=== PATIENT | female | born 1970 | race Caucasian/White ===

== ENCOUNTER 2019-03-22 10:36 | Emergency (ER) | payer OTHER, SELFPAY ==
[2019-03-22] VITALS (7 sets, daily range): BP systolic 142–197; BP diastolic 69–84; PULSE 95–109; RESP 14–24; TEMP 37.1; O2SAT 94–99; BMI 38.2
[2019-03-22] MEDS: FAMOTIDINE 20 MG/50 ML PIGGYBACK 200 MG IV (11:32)
[2019-03-22] MEDS: ONDANSETRON 4 MG/2 ML INJ IV (11:32)
[2019-03-22] MEDS: methylPREDNISolone 125 MG/2 ML VIAL IV (11:32)
[2019-03-22] MEDS: SODIUM CHLORIDE 0.9% 1,000 ML 1000 ML IV (11:34)
--- NOTE | 2019-03-22 11:55 | ED.ALLEREA ---
HPI - Allergic Reaction General Chief complaint: Allergic Reaction Stated complaint: Allergic reaction/ epipen Time Seen by Provider: 03/22/19 10:42 Source: patient and EMS Mode of arrival: EMS Limitations: no limitations History of Present Illness HPI narrative: 48-year-old female nonsmoker with history of diabetes and significant allergic reactions presents by EMS for allergic reaction. It is unknown what her trigger was today but she developed some swelling in her throat as well as widespread erythematous rash. She took her own EpiPen which had been and activated EMS treated her as well. By the time she arrived here she had largely calm down and had no ongoing symptoms. She denies new medicines, foods or exposure to pets or other known allergens. She has seen an elementary art teacher in the past and had no significant results MD complaint: allergic reaction, hives and facial swelling Onset (ago): minute(s) Exposure: unknown Symptoms: rash Severity: moderate Treatment prior to arrival: benadryl, epinephrine and bronchodilator Previous Allergic Reaction History: prior ED visit(s) Related Data Home Medications Medication Instructions Recorded Confirmed levonorgestrel [Mirena] #0 08/24/12 CALCIUM CARBONATE (TUMS ) 2 - 3 tabs PO PRN #0 08/25/12 ibuprofen 200 mg PO PRN #0 08/25/12 glimepiride 4 mg PO DAILY 03/22/19 03/22/19 lisinopril 20 mg PO DAILY 03/22/19 03/22/19 metformin 1,000 mg PO BID 03/22/19 03/22/19 omeprazole 20 mg PO DAILY 03/22/19 03/22/19 trazodone 100 mg PO BEDTIME 03/22/19 03/22/19 Previous Rx's Medication Instructions Recorded alprazolam [Xanax] 1 - 2 tabs PO HS PRN #60 01/17/13 epinephrine [EpiPen 2-Kyle] 0.3 mg INJ X1 #1 ea 11/01/17 epinephrine [EpiPen 2-Kyle] 0.3 mg IM Q15M PRN 1 Days #2 each 03/22/19 prednisone 20 mg PO DAILY #5 tab 03/22/19 Allergies Allergy/AdvReac Type Severity Reaction Status Date / Time Penicillins Allergy Verified 03/22/19 10:44 Review of Systems Constitutional Denies chills, Denies fever(s), Denies lethargy and Denies weakness Eyes Denies change in vision, Denies eye discharge, Denies irritation and Denies loss of vision ENT Ears, Nose, Mouth, and Throat: Denies change in voice, Reports hoarseness, Denies neck pain and Denies sore throat Cardiovascular Denies chest pain, Denies irregular heart rhythm, Denies lightheadedness, Denies palpitations, Reports dyspnea, Denies dyspnea on exertion and Denies orthopnea Respiratory Denies cough, Reports dyspnea, Denies dyspnea on exertion and Reports wheezing Gastrointestinal Gastrointestinal: Denies abdominal pain, Denies change in bowel habits, Denies diarrhea, Denies nausea and Denies vomiting Genitourinary Denies hematuria, Denies flank pain, Denies urinary incontinence and Denies urinary urgency Musculoskeletal Denies neck pain Integumentary/Breasts Denies pruritus, Reports erythema, Reports rash and Denies wounds Neurologic Denies confusion, Denies loss of vision and Denies weakness Psychiatric Denies anxiety, Denies confusion, Denies depression, Denies homicidal ideation and Denies suicidal ideation Endocrine Denies palpitations Hematologic/Lymphatic Denies easy bruising Allergic/Immunologic Reports wheezing Exam Narrative Exam Narrative: GENERAL: This is a well-nourished, well-developed patient, in mild distress. HEAD: Atraumatic. Normocephalic. No temporal or scalp tenderness. EYES: Pupils equal round and reactive. Extraocular motions intact. No scleral icterus. No injection or drainage. ENT: Nose without bleeding, purulent drainage or septal hematoma. Throat without erythema, tonsillar hypertrophy or exudate. Uvula midline. Airway patent. NECK: Trachea midline. No JVD or lymphadenopathy. Supple, nontender, no meningeal signs. CARDIOVASCULAR: Regular rate and rhythm without murmurs, gallops, or rubs. RESPIRATORY: Clear to auscultation. Breath sounds equal bilaterally. No wheezes, rales, or rhonchi. GASTROINTESTINAL: Abdomen soft, non-tender, nondistended. No hepato-splenomegaly, or palpable masses. No guarding. EXTREMITIES: No clubbing, cyanosis, or edema. No joint tenderness, effusion, or edema noted. BACK: Nontender without deformity or crepitance. No flank tenderness. NEURO: AOx3. SKIN: No rash or erythema. Initial Vital Signs Initial Vital Signs: Vital Signs Temperature 98.8 F 03/22/19 10:44 Pulse Rate 109 H 03/22/19 10:44 Respiratory Rate 20 03/22/19 10:44 Blood Pressure 197/84 H 03/22/19 10:44 Pulse Oximetry 99 03/22/19 10:44 Course Orders Ordered: ED Orders 03/22/19 10:48 EKG-12 Lead Routine Discontinued Medications Sodium Chloride (Normal Saline 0.9%) 1,000 mls @ 1,000 mls/hr IV BOLUS ONE Stop: 03/22/19 11:59 Last Infusion: 03/22/19 12:49 Dose: 0 mls/hr Admin: 03/22/19 11:34 Dose: 1,000 mls/hr Famotidine (Pepcid) 20 mg in 50 mls @ 200 mls/hr IV NOW ONE Stop: 03/22/19 11:14 Last Infusion: 03/22/19 12:49 Dose: 0 mls/hr Admin: 03/22/19 11:32 Dose: 200 mls/hr Methylprednisolone (Solu-Medrol 125 Mg Vial) 125 mg IV NOW ONE Stop: 03/22/19 11:01 Last Admin: 03/22/19 11:32 Dose: 125 mg Ondansetron HCl (Zofran) 4 mg IV Q4HR PRN PRN Reason: Nausea And Vomiting Last Admin: 03/22/19 11:32 Dose: 4 mg Vital Signs - 8 hr 03/22/19 10:44 03/22/19 11:00 03/22/19 11:30 Temperature 98.8 F Pulse Rate 109 H 101 H 101 H Respiratory Rate 20 14 24 Blood Pressure 197/84 H Blood Pressure [Left Arm] 190/71 H 156/76 H Pulse Oximetry 99 99 94 03/22/19 12:00 03/22/19 12:30 03/22/19 13:30 Temperature Pulse Rate 95 H 95 H 95 H Respiratory Rate 19 18 16 Blood Pressure Blood Pressure [Left Arm] 151/81 H 151/74 H 142/69 H Pulse Oximetry 98 96 97 03/22/19 14:00 Temperature Pulse Rate 95 H Respiratory Rate 16 Blood Pressure Blood Pressure [Left Arm] 148/77 H Pulse Oximetry 97 MDM - Allergic Reaction MDM Narrative Medical decision making narrative: Patient with significant allergic reactions to an unknown trigger. Affective treatment prior to arrival and no worsening of symptoms during the visit Discharge Plan Departure Patient Disposition: Home Clinical Impression: Allergic reaction Qualifiers: Encounter type: initial encounter Qualified Code(s): T78.40XA - Allergy, unspecified, initial encounter Discharge Date/Time: 03/22/19 14:16 Interventions: ED Discharge Assessment Last Done: 03/22/19 14:15 Instructions: DI for General Allergic Reactions Activity Restrictions/Additional Instructions: *You have been diagnosed with [ allergic reaction ] *What to do: *Take medications as directedL: Over the counter antihistamines such as zyrtec or allergra as well as Pepcid *Follow up with your primary care provider in 2-3 days, call for an appointment. Let them know you were seen in the Emergency Department and that we ask that you be seen in follow up *Return to ER if you should have any new, worsening or concerning symptoms Prescriptions: New prednisone 20 mg tablet 20 mg PO DAILY Qty: 5 RF: 0 epinephrine [EpiPen 2-Kyle] 0.3 mg/0.3 mL auto-injector 0.3 mg IM Q15M PRN (Reason: anaphylaxis) 1 Days Qty: 2 RF: 0 No Action levonorgestrel [Mirena] 1 EACH intrauterine device Qty: 0 RF: 0 CALCIUM CARBONATE (TUMS ) 2 - 3 tabs PO PRN Qty: 0 RF: 0 ibuprofen 200 MG tablet 200 mg PO PRN Qty: 0 RF: 0 alprazolam [Xanax] 0.5 MG tablet 1 - 2 tabs PO HS PRN Qty: 60 RF: 1 epinephrine [EpiPen 2-Kyle] 0.3 MG/0.3 ML auto-injector 0.3 mg INJ X1 Qty: 1 RF: 1 metformin 500 mg tablet 1,000 mg PO BID RF: 0 glimepiride 2 mg tablet 4 mg PO DAILY RF: 0 trazodone 100 mg tablet 100 mg PO BEDTIME RF: 0 lisinopril 20 MG tablet 20 mg PO DAILY RF: 0 omeprazole 20 MG capsule,delayed release(DR/EC) 20 mg PO DAILY RF: 0 Referrals: Eric Carranza DO [Primary Care Provider] -
--- NOTE | 2019-03-22 12:51 | PC.NURSE ---
IV placed by Sidra BRIGHT at 1130
== END 2019-03-22 14:16 | disposition home or self-care (01) ==
PROVIDERS: Emergency Provider Emergency Medicine; PCP Family Medicine
DX: T78.40XA Allergy, unspecified, initial encounter (principal); L50.0 Allergic urticaria; R22.0 Localized swelling, mass and lump, head
CPT/HCPCS: 93005; 96365; 96375; 99284; J2405; J2930

== ENCOUNTER 2019-08-31 10:07 | Emergency (ER) | payer OTHER, SELFPAY ==
[2019-08-31] VITALS (7 sets, daily range): BP systolic 158–181; BP diastolic 77–97; PULSE 88–114; RESP 16–24; TEMP 36.9–37.1; O2SAT 94–97; BMI 39.9
--- NOTE | 2019-08-31 11:12 | ED_ITS ---
HPI - Allergic Reaction General Chief complaint: Allergic Reaction Stated complaint: hives/cp/vomiting/diarrhea since last night Time Seen by Provider: 08/31/19 10:44 Source: patient Mode of arrival: Ambulatory Limitations: no limitations History of Present Illness HPI narrative: Patient comes emergency department complaining of nausea vomiting for the last couple of days, as well as itching and swelling of her hands. Patient also states she has hives all over her body today. Patient denies any abdominal pain. She states she has a pressure-like pain in her chest that has been bothering her today. No shortness of breath. Patient states she has had diarrhea, but no blood in stools. No dysuria. Patient denies any cardiac history. She is a type 2 diabetic. She states she has a history of allergies, which usually causes swelling and redness and itching of her hands, though she has seen an pen and pencil repairer and had two allergy panels done, nobody has figured out what she is allergic to. Related Data Home Medications Medication Instructions Recorded Confirmed ibuprofen 200 mg PO PRN #0 08/25/12 08/31/19 glimepiride 4 mg PO DAILY 03/22/19 08/31/19 metformin 1,000 mg PO BID 03/22/19 08/31/19 omeprazole 20 mg PO DAILY 03/22/19 08/31/19 epinephrine [EpiPen 2-Kyle] 0.3 mg INJ X1 PRN 08/31/19 08/31/19 hydrochlorothiazide 25 mg PO DAILY 08/31/19 08/31/19 Previous Rx's Medication Instructions Recorded ondansetron 4 mg PO Q6H PRN #14 tab 08/31/19 prednisone 60 mg PO DAILY #9 tab 08/31/19 Allergies Allergy/AdvReac Type Severity Reaction Status Date / Time Penicillins Allergy Verified 03/22/19 10:44 Review of Systems Constitutional Constitutional: Denies chills, Denies fatigue, Denies fever(s), Denies frequent falls, Denies lethargy and Denies weakness Eyes Eyes: Denies change in vision, Denies eye discharge, Denies irritation and Denies loss of vision ENT Ears, Nose, Mouth, and Throat: Denies change in voice, Denies dizziness, Denies neck pain, Denies sore throat and Denies throat swelling Cardiovascular Cardiovascular: Reports chest pain, Denies irregular heart rhythm, Denies lightheadedness, Denies palpitations, Denies dyspnea, Denies dyspnea on exertion and Denies orthopnea Respiratory Respiratory: Denies cough, Denies dyspnea, Denies dyspnea on exertion and Denies wheezing Gastrointestinal Gastrointestinal: Denies abdominal pain, Denies change in bowel habits, Denies diarrhea, Denies nausea and Denies vomiting Genitourinary Genitourinary: Denies hematuria, Denies flank pain, Denies urinary incontinence and Denies urinary urgency Musculoskeletal Musculoskeletal: Denies back pain, Denies muscle weakness, Denies neck pain, Denies numbness and Denies tingling Integumentary/Breasts Skin/Breast: Denies pruritus, Reports erythema (palms), Denies rash and Denies wounds Neurologic Neurologic: Denies behavioral changes, Denies confusion, Denies dizziness, Denies frequent falls, Denies loss of vision, Denies numbness, Denies tingling and Denies weakness Psychiatric Psychiatric: Denies anxiety, Denies behavioral changes, Denies confusion, Denies depression, Denies homicidal ideation and Denies suicidal ideation Endocrine Endocrine: Denies fatigue, Denies flushing and Denies palpitations Hematologic/Lymphatic Hematologic/Lymphatic: Denies easy bruising Allergic/Immunologic Allergic/Immunologic: Denies urticaria, Denies throat swelling and Denies whee zing Patient History Social History Smoking Status: Never smoker alcohol intake frequency: 0-2 drinks per day Alcohol type: wine Exam Initial Vital Signs Initial Vital Signs: Vital Signs Temperature 98.4 F 08/31/19 10:26 Pulse Rate 112 H 08/31/19 10:26 Respiratory Rate 24 08/31/19 10:26 Blood Pressure 181/97 H 08/31/19 10:26 Pulse Oximetry 97 08/31/19 10:26 Const General: cooperative and well developed Nutritional Appearance: well nourished Orientation: alert, awake, oriented x3 and not confused [facility] Head: normocephalic and atraumatic Ears: external ears normal Nose: external nose normal and No nasal discharge Face and sinus: face symmetric and No dry mucous membranes Mouth: oral mucosae normal and moist mucous membranes Teeth and gingiva: dentition normal Eyes General: appearance normal, both eyes and all related structures Eyelids: eyelids normal Conjunctivae: conjunctivae normal Sclera: sclerae normal Pupils: PERRL EOM: EOM intact bilaterally Neck Neck: normal visual inspection, trachea midline, No lymphadenopathy, No midline deformity and No JVD Lymphatic: No lymphedema Chest Chest: normal inspection of the chest Resp Effort & Inspection: normal respiratory effort, able to speak in complete sentences, no respiratory distress and no use of accessory muscles Auscultation: clear to auscultation bilaterally, no rales, no rhonchi and no wheezes Cardio Rate: regular rate Rhythm: regular rhythm Heart Sounds: no click, no gallops, no murmurs and no rubs Pulses: normal peripheral pulses GI Inspection: non-distended Palpation: soft, no hepatosplenomegaly, No guarding, No pulsatile mass and No tender Back/Spine/Pelvis Back: No CVA tenderness Cervical Spine: cervical ROM normal and No pain with cervical ROM Thoracic/Lumbar Spine: thoracic and lumbar spine normal to inspection Skin General: No jaundice and No petechiae Other: Patient has an urticarial rash over her truncal area, and has mild edema with mild erythema of her palms and fingers on the flexor surface. Neuro General: alert, oriented x3, gait normal and no focal motor deficits Speech: speech normal Extrem General: full ROM, no clubbing, cyanosis or edema, no pedal edema and no calf tenderness Psych Appearance: well kempt Mental Status: mental status grossly normal Attitude: cooperative Thought Content: normal and suicidality Judgment: judgment good Course Course Course Narrative: Patient was treated symptomatically in the emergency department with IV Decadron, IV fluids, and Zofran. She was worked up with labs, which showed mildly elevated LFTs. Given this and the nausea the patient had been having, I did order an abdominal ultrasound, which showed chronic changes in the liver, but was otherwise unremarkable. patient was found to be feeling somewhat better, and I discussed her results with her. The patient has already seen two allergists for the allergic reactions, and extensive testing has not uncovered a source. I have discussed with the patient that she may seek another opinion from another pen and pencil repairer, perhaps at [facility]. At this time, the patient is stable for discharge home. We have discussed home management of symptoms, as well as the usual indications for return. Orders Ordered: Discontinued Medications Sodium Chloride (Normal Saline 0.9%) 1,000 mls @ 1,000 mls/hr IV BOLUS ONE Stop: 08/31/19 12:00 Last Infusion: 08/31/19 12:43 Dose: 0 mls/hr Documented by: Admin: 08/31/19 11:14 Dose: 1,000 mls/hr Documented by: LACHELLE Dexamethasone 20 mg/ Sodium (Chloride) 52 mls @ 208 mls/hr IV NOW ONE Stop: 08/31/19 11:02 Last Infusion: 08/31/19 11:45 Dose: 0 mls/hr Documented by: Admin: 08/31/19 11:29 Dose: 208 mls/hr Documented by: LACHELLE Ondansetron HCl (Zofran) 4 mg IV NOW ONE Stop: 08/31/19 11:02 Last Admin: 08/31/19 11:14 Dose: 4 mg Documented by: LACHELLE Vital Signs Vital signs: Vital Signs - 8 hr 08/31/19 10:26 08/31/19 11:08 Temperature 98.4 F 98.7 F Pulse Rate 112 H 114 H Respiratory Rate 24 16 Blood Pressure 181/97 H Blood Pressure [Right Arm] 167/96 H Pulse Oximetry 97 97 MDM - Allergic Reaction Medical Records Attestation: I reviewed the patient's medical records. Lab Data Attestation: I reviewed the patient's lab results. Result diagrams: 08/31/19 10:45 08/31/19 12:56 Labs: Lab Results 08/31/19 08/31/19 Range/Units 10:45 12:56 WBC 10.5 (4.5-11.0) X10^3/uL RBC 5.45 H (4.0-5.2) X10^6/uL Hgb 15.9 (12.0-16.0) g/dL Hct 47.1 H (36-46) % MCV 86.3 (80-100) fL MCH 29.2 (26-34) PG MCHC 33.8 (30-36) % RDW 13.7 (11.6-14.8) % Plt Count 270 (150-400) X10^3/uL Neut % (Auto) 84.2 H (50-75) % Lymph % (Auto) 10.2 L (25-40) % Louisa % (Auto) 4.8 (3-14) % Eos % (Auto) 0.7 L (2-4) % Baso % (Auto) 0.1 (0-2) % Neut # (Auto) 8800 H (7578-4143) /uL Lymph # (Auto) 1100 (4345-8702) /uL Louisa # (Auto) 500 (0-900) /uL Eos # (Auto) 100 (0-450) /uL Baso # (Auto) 0 (0-100) /uL Sodium 136 L (137-145) mmol/L Potassium 3.6 (3.4-5.1) mmol/L Chloride 100 (98-107) mmol/L Carbon Dioxide 27 (22-32) mmol/L BUN 12 (7-17) mg/dL Creatinine 0.50 L (0.52-1.04) mg/dL Estimated GFR > 60.0 (>60) mL/min BUN/Creatinine Ratio 24.0 H (6-22) Glucose 259 H (70-100) mg/dL Calcium 8.9 (8.4-10.2) mg/dL Total Bilirubin 0.7 (0.2-1.3) mg/dL AST 45 H (14-36) IU/L ALT 58 H (9-52) IU/L Alkaline Phosphatase 54 (38-126) U/L Total Protein 6.6 (6.3-8.2) g/dL Albumin 3.8 (3.5-5.0) g/dL Globulin 2.8 (1.7-4.1) g/dL Albumin/Globulin Ratio 1.4 (1.0-2.8) Imaging Data US - abdomen: Radiologist's impression: PROCEDURE: US ABDOMEN LIMITED INDICATIONS: VOMITING, ELEVATED LIVER FUNCTION TESTS. Reported patient history of fatty liver disease, status post cholecystectomy. TECHNIQUE: Real-time focused scanning was performed of the abdomen, with image documentation. COMPARISON: None. FINDINGS: Suboptimal exam due to imaging artifact. Imaged portions of the pancreatic head appear unremarkable. The pancreatic body and tail are obscured by overlying bowel gas. There is diffusely increased hepatic echogenicity. The right hepatic lobe measures 21.9 cm in sagittal diameter. The main portal vein is not well seen on this exam. The common bile duct is not well-seen on this exam. A structure thought to represent the common bile duct measures approximately 5 mm, but is not definitive secondary imaging artifact. The gallbladder is not seen on this exam. Right kidney measures 12.4 cm in long axis. IMPRESSION: Suboptimal exam due to imaging artifact. Within this context: 1. Enlarged liver demonstrating diffusely increased hepatic echogenicity. Differential considerations for these findings includes (but is not limited to) hepatic steatosis, hepatic fibrosis/cirrhosis, and/or hepatitis. Clinical correlation recommended. 2. Gallbladder is not seen on this exam, consistent with provided history of prior cholecystectomy. The common bile duct is not definitively seen on this exam. Co nsider liver MRI/MRCP if there is continued clinical concern. Dictated by: Rocky Fatima M.D. on 08/31/2019 at 14:17 Approved by: Rocky Fatima M.D. on 08/31/2019 at 14:26 Discharge Plan Departure Patient Disposition: Home Clinical Impression: Gastroenteritis Allergic reaction Qualifiers: Encounter type: initial encounter Qualified Code(s): T78.40XA - Allergy, unspecified, initial encounter Discharge Date/Time: 08/31/19 14:35 Instructions: DI for Viral Gastroenteritis -- Adult, DI for Hives Activity Restrictions/Additional Instructions: Your labs look great, with the exception of your liver labs, which are slightly elevated. For this reason, an ultrasound was done of your right upper abdomen. You have mild fatty infiltration the liver which can cause your labs to be abnormal. Otherwise, your ultrasound looks great. There is no evidence of a serious condition causing your symptoms today. Please continue to work with your pen and pencil repairer to pinpoint the reason for your outbreaks of urticaria, swelling and itching. Prescriptions: New prednisone 20 mg tablet 60 mg PO DAILY Qty: 9 RF: 0 ondansetron 4 mg tablet,disintegrating 4 mg PO Q6H PRN (Reason: nausea and vomiting) Qty: 14 RF: 0 No Action ibuprofen 200 MG tablet 200 mg PO PRN Qty: 0 RF: 0 metformin 500 mg tablet 1,000 mg PO BID RF: 0 glimepiride 2 mg tablet 4 mg PO DAILY RF: 0 omeprazole 20 MG capsule,delayed release(DR/EC) 20 mg PO DAILY RF: 0 hydrochlorothiazide 25 mg tablet 25 mg PO DAILY RF: 0 epinephrine [EpiPen 2-Kyle] 0.3 MG/0.3 ML auto-injector 0.3 mg INJ X1 PRN (Reason: Allergic Reaction) RF: 0 Referrals: Eric Carranza DO [Primary Care Provider] -
[2019-08-31] MEDS: SODIUM CHLORIDE 0.9% 1,000 ML 1000 ML IV (11:14)
[2019-08-31] MEDS: ONDANSETRON 4 MG/2 ML INJ IV (11:14)
[2019-08-31] MEDS: dexAMETHasone 20 MG in SODIUM CHLORIDE 0.9% 50 ML 208 ML IV (11:29)
[2019-08-31 12:52] LABS: Add Manual Diff / Slide Review NO; Basophils Absolute Auto 0 /uL (0-100); Basophils Percent Auto 0.1 % (0-2); Eosinophils Absolute Auto 100 /uL (0-450); Eosinophils Percent Auto 0.7 % (2-4); Hematocrit 47.1 % (36-46); Hemoglobin 15.9 g/dL (12.0-16.0); Lymphocytes Absolute Auto 1100 /uL (1100-4500); Lymphocytes Percent Auto 10.2 % (25-40); Mean Corpuscular HGB Conc 33.8 % (30-36); Mean Corpuscular Hemoglobin 29.2 PG (26-34); Mean Corpuscular Volume 86.3 fL (80-100); Monocytes Absolute Auto 500 /uL (0-900); Monocytes Percent Auto 4.8 % (3-14); Neutrophils Absolute Auto 8800 /uL (1500-7000); Neutrophils Percent Auto 84.2 % (50-75); Platelet Count 270 X10^3/uL (150-400); Red Blood Cell Count 5.45 X10^6/uL (4.0-5.2); Red Cell Distribution Width 13.7 % (11.6-14.8); White Blood Cell Count 10.5 X10^3/uL (4.5-11.0)
[2019-08-31 13:16] LABS: Alanine Aminotransferase 58 IU/L (9-52); Albumin 3.8 g/dL (3.5-5.0); Albumin Globulin Ratio 1.4 (1.0-2.8); Alkaline Phosphatase 54 U/L (38-126); Aspartate Aminotransferase 45 IU/L (14-36); Bilirubin Total 0.7 mg/dL (0.2-1.3); Blood Urea Nitrogen 12 mg/dL (7-17); Calcium 8.9 mg/dL (8.4-10.2); Carbon Dioxide 27 mmol/L (22-32); Chloride 100 mmol/L (98-107); Estimated Glomerular Filt Rate > 60.0 mL/min (>60); Globulin 2.8 g/dL (1.7-4.1); Glucose 259 mg/dL (70-100); HEMOLYSIS < 15 (0-50); Potassium 3.6 mmol/L (3.4-5.1); Sodium 136 mmol/L (137-145); Total Protein 6.6 g/dL (6.3-8.2)
--- NOTE | 2019-08-31 13:27 | DI.US.S_ITS ---
PROCEDURE: US ABDOMEN LIMITED INDICATIONS: VOMITING, ELEVATED LIVER FUNCTION TESTS. Reported patient history of fatty liver disease, status post cholecystectomy. TECHNIQUE: Real-time focused scanning was performed of the abdomen, with image documentation. COMPARISON: None. FINDINGS: Suboptimal exam due to imaging artifact. Imaged portions of the pancreatic head appear unremarkable. The pancreatic body and tail are obscured by overlying bowel gas. There is diffusely increased hepatic echogenicity. The right hepatic lobe measures 21.9 cm in sagittal diameter. The main portal vein is not well seen on this exam. The common bile duct is not well-seen on this exam. A structure thought to represent the common bile duct measures approximately 5 mm, but is not definitive secondary imaging artifact. The gallbladder is not seen on this exam. Right kidney measures 12.4 cm in long axis. IMPRESSION: Suboptimal exam due to imaging artifact. Within this context: 1. Enlarged liver demonstrating diffusely increased hepatic echogenicity. Differential considerations for these findings includes (but is not limited to) hepatic steatosis, hepatic fibrosis/cirrhosis, and/or hepatitis. Clinical correlation recommended. 2. Gallbladder is not seen on this exam, consistent with provided history of prior cholecystectomy. The common bile duct is not definitively seen on this exam. Consider liver MRI/MRCP if there is continued clinical concern. Dictated by: Rocky Fatima M.D. on 08/31/2019 at 14:17 Approved by: Rocky Fatima M.D. on 08/31/2019 at 14:26
[2019-08-31] MEDS: ONDANSETRON 4 MG/2 ML INJ (14:14)
== END 2019-08-31 14:35 | disposition home or self-care (01) ==
PROVIDERS: Emergency Provider Emergency Medicine; PCP Family Medicine
DX: K52.9 Noninfective gastroenteritis and colitis, unspecified (principal); T78.40XA Allergy, unspecified, initial encounter
CPT/HCPCS: 36415; 76705; 80053; 85025; 96361; 96365; 96375; 99283; 99284; J1100; J2405

== ENCOUNTER 2019-12-23 07:09 | Emergency (ER) | payer OTHER, SELFPAY ==
[2019-12-23 07:21] VITALS: BP 150/90; PULSE 90; RESP 13; TEMP 36.2; O2SAT 98
[2019-12-23 07:31] LABS: Appearance Urine UA CLOUDY; Bacteria Urine None Seen; Bilirubin Urine UA NEGATIVE (NEGATIVE); Color Urine UA BROWN; Glucose Urine UA 2+ g/dL (Negative); Ketones Urine UA TRACE (NEGATIVE); Leukocyte Esterase Urine UA 1+ (NEGATIVE); Nitrite Urine UA NEGATIVE (Negative); Occult Blood Urine UA 3+ (Negative); Protein Urine UA 2+ (Negative); Specific Gravity Urine UA 1.015 (1.000-1.035); Urobilinogen Urine UA 0.2 E.U./dL (0.2)
[2019-12-23 07:44] LABS: Culture Indicated Urine Specimen Cultured; RBC Urine >100/HPF (0-5/HPF); Renal Epithelial Cells Urine 0-1/HPF (0-1/HPF); Squamous Epithelial Cell Urine 1-5 /HPF (0-5/HPF); Transitional Epi Cells Urine 1-5/HPF (0-5/HPF); WBC Urine 5-10/HPF (0-5/HPF)
[2019-12-23] MEDS: PHENAZOPYRIDINE 100 MG TABLET 200 MG PO (07:46)
[2019-12-23] MEDS: TRIMETH/SULFA 160/800 (DS) TABLET 1 TAB PO (07:46)
--- NOTE | 2019-12-23 07:51 | ED_ITS ---
HPI - Female Genitourinary General Chief complaint: Urogenital-Female Stated complaint: raging UTI/urinating blood Source: patient Mode of arrival: Ambulatory History of Present Illness HPI Narrative: 49-year-old woman with a history of type 2 diabetes currently recovering from influenza a and a vaginal yeast infection began having acute dysuria, urgency and hematuria in the last 12 hours. She is having no fevers, nausea, vomiting, diarrhea, flank pain, some mild suprapubic abdominal pain only without rebound or guarding, no pulmonary symptoms and no chest pain. She states that it has been years since she has had a urinary tract infection Related Data Home Medications Medication Instructions Recorded Confirmed ibuprofen 200 mg PO PRN #0 08/25/12 08/31/19 glimepiride 4 mg PO DAILY 03/22/19 08/31/19 metformin 1,000 mg PO BID 03/22/19 08/31/19 omeprazole 20 mg PO DAILY 03/22/19 08/31/19 epinephrine [EpiPen 2-Kyle] 0.3 mg INJ X1 PRN 08/31/19 08/31/19 hydrochlorothiazide 25 mg PO DAILY 08/31/19 08/31/19 Previous Rx's Medication Instructions Recorded ondansetron 4 mg PO Q6H PRN #14 tab 08/31/19 prednisone 60 mg PO DAILY #9 tab 08/31/19 phenazopyridine [Pyridium] 200 mg PO TID #6 tab 12/23/19 sulfamethoxazole-trimethoprim 1 tab PO BID #10 tab 12/23/19 [Bactrim DS] Allergies Allergy/AdvReac Type Severity Reaction Status Date / Time Penicillins Allergy Verified 03/22/19 10:44 Review of Systems Review of Systems Narrative: All systems reviewed and are unremarkable except as noted in HPI and below Patient History Medical History Diabetes (Acute) education level: college Smoking Status: Never smoker alcohol intake frequency: 0-2 drinks per day Alcohol type: wine Substance Use Type: does not use Exam Narrative Exam Narrative: General: Alert appropriate in no acute distress Respiratory: Able to speak in full sentences, no obvious respiratory distress Cardiac: Regular rate and rhythm no murmurs Abdomen: Minor suprapubic tenderness without rebound or guarding. No flank tenderness Skin: No obvious rashes, warm and dry Neurologic: Grossly intact no obvious asymmetries or abnormalities Psych, appropriate insight and affect, cooperative Initial Vital Signs Initial Vital Signs: Vital Signs Temperature 97.1 F L 12/23/19 07:21 Pulse Rate 90 12/23/19 07:21 Respiratory Rate 13 12/23/19 07:21 Blood Pressure 150/90 H 12/23/19 07:21 Pulse Oximetry 98 12/23/19 07:21 Course Orders Ordered: ED Orders 12/23/19 07:26 UA dip and micro [Urinalysis and Microscopic] Stat Urine Culture Stat Discontinued Medications Phenazopyridine HCl (Pyridium) 200 mg PO NOW ONE Stop: 12/23/19 07:39 Last Admin: 12/23/19 07:46 Dose: 200 mg Documented by: CARLOS Trimethoprim/Sulfamethoxazole (Bactrim Ds) 1 tab PO NOW ONE Stop: 12/23/19 07:39 Last Admin: 12/23/19 07:46 Dose: 1 tab Documented by: CARLOS Vital Signs Vital signs: Vital Signs - 8 hr 12/23/19 07:21 Temperature 97.1 F L Pulse Rate 90 Respiratory Rate 13 Blood Pressure 150/90 H Pulse Oximetry 98 MDM - Female Genitourinary Lab Data Labs: Lab Results 12/23/19 Range/Units 07:26 Urine Color Brown Urine Appearance Cloudy Urine pH 5.0 (4.5-8.0) Ur Specific [place] 1.015 (1.000-1.035) Urine Protein 2+ H (Negative) Urine Glucose (UA) 2+ H (Negative) g/dL Urine Ketones Trace H (NEGATIVE) Urine Occult Blood 3+ H (Negative) Urine Nitrate Negative (Negative) Urine Bilirubin Negative (NEGATIVE) Urine Urobilinogen 0.2 (0.2) E.U./dL Ur Leukocyte Esterase 1+ H (NEGATIVE) Urine RBC >100/hpf H (0-5/HPF) Urine WBC 5-10/hpf H (0-5/HPF) Ur Squamous Epith Cells 1-5 /hpf (0-5/HPF) Ur Transition Epith Cell 1-5/hpf (0-5/HPF) Ur Renal Epithelial Cell 0-1/hpf (0-1/HPF) Urine Bacteria None seen (None) Ur Culture Indicated? Specimen cultured MDM Narrative Medical decision making narrative: Classic presentation for an acute UTI with moderate hematuria. Will culture her urine. This point does not warrant further workup. Clearly reviewed signs and symptoms of worsening disease or developing systemic symptoms. All questions are answered. She is safe for home discharge Discharge Plan Departure Patient Disposition: Home Clinical Impression: Urinary tract infection Instructions: DI for Urinary Tract Infection (UTI) Activity Restrictions/Additional Instructions: Thank you for coming in today. Based on your urinalysis you clearly have a bladder infection and does not appear to have become a kidney infection at this time. I am going to start you on 5 days of Septra ds, an antibiotic to treat the bladder infection. If the culture comes back in suggests that this is the inappropriate antibiotic, we will call you back in changes. With the current yeast infection that you currently have, I'm going to suggest you to keep the 3 additional Diflucan doses that you currently have and take them starting on the final day of the Septra. I think this will provide better coverage for you and will deal with any antibiotic related yeast concerns as well. It is okay to continue using nystatin for symptomatic itching I am glad you are feeling better after dealing with influenza. We clearly discussed the signs and symptoms of a kidney infection. If you feel like the bladder infection is not improving or getting worse, please return and we will do a more thorough workup that includes blood work I hope you feel better soon. Prescriptions: New sulfamethoxazole-trimethoprim [Bactrim DS] 800-160 mg tablet 1 tab PO BID Qty: 10 RF: 0 phenazopyridine [Pyridium] 200 mg tablet 200 mg PO TID Qty: 6 RF: 0 No Action ibuprofen 200 MG tablet 200 mg PO PRN Qty: 0 RF: 0 metformin 500 mg tablet 1,000 mg PO BID RF: 0 glimepiride 2 mg tablet 4 mg PO DAILY RF: 0 omeprazole 20 MG capsule,delayed release(DR/EC) 20 mg PO DAILY RF: 0 hydrochlorothiazide 25 mg tablet 25 mg PO DAILY RF: 0 epinephrine [EpiPen 2-Kyle] 0.3 MG/0.3 ML auto-injector 0.3 mg INJ X1 PRN (Reason: Allergic Reaction) RF: 0 prednisone 20 mg tablet 60 mg PO DAILY Qty: 9 RF: 0 ondansetron 4 mg tablet,disintegrating 4 mg PO Q6H PRN (Reason: nausea and vomiting) Qty: 14 RF: 0 Referrals: Eric Carranza DO [Primary Care Provider] -
== END 2019-12-23 08:13 | disposition home or self-care (01) ==
PROVIDERS: Emergency Provider Emergency Medicine; PCP Family Medicine
DX: N39.0 Urinary tract infection, site not specified (principal); R31.9 Hematuria, unspecified; E11.9 Type 2 diabetes mellitus without complications
CPT/HCPCS: 81001; 87077; 87086; 87147; 99283

== ENCOUNTER 2022-03-02 19:30 | Observation (INO) | payer OTHER, SELFPAY ==
[2022-03-02] VITALS (28 sets, daily range): BP systolic 152–243; BP diastolic 69–109; PULSE 71–92; RESP 8–23; TEMP 36.6; O2SAT 94–99
--- NOTE | 2022-03-02 19:35 | DI.RAD.S_ITS ---
PROCEDURE: XR CHEST 1V INDICATIONS: chest pain TECHNIQUE: One view of the chest was acquired. COMPARISON: [facility], , CHEST 1 VIEW, 05/09/2017, 4:01. FINDINGS: Surgical changes and devices: None. Lungs and pleura: Lungs are clear. No pleural effusions or pneumothorax. Mediastinum: Mediastinal contours appear normal. Heart size is normal. Bones and chest wall: No suspicious bony lesions. Overlying soft tissues appear unremarkable. IMPRESSION: No acute cardiopulmonary abnormality. Dictated by: Marvin Blount M.D. on 03/02/2022 at 21:22 Approved by: Marvin Blount M.D. on 03/02/2022 at 21:22
[2022-03-02 20:18] LABS: Add Manual Diff / Slide Review NO; Basophils Absolute Auto 100 /uL (0-100); Eosinophils Absolute Auto 200 /uL (0-450); Eosinophils Percent Auto 3.1 % (2-4); Hematocrit 37.4 % (36-46); Hemoglobin 12.9 g/dL (12.0-16.0); Lymphocytes Absolute Auto 1400 /uL (1100-4500); Lymphocytes Percent Auto 25.6 % (25-40); Mean Corpuscular HGB Conc 34.4 % (30-36); Mean Corpuscular Hemoglobin 29.7 PG (26-34); Mean Corpuscular Volume 86.3 fL (80-100); Monocytes Absolute Auto 500 /uL (0-900); Monocytes Percent Auto 8.3 % (3-14); Neutrophils Absolute Auto 3500 /uL (1500-7000); Platelet Count 186 X10^3/uL (150-400); Red Blood Cell Count 4.34 X10^6/uL (4.0-5.2); Red Cell Distribution Width 13.9 % (11.6-14.8); White Blood Cell Count 5.6 X10^3/uL (4.5-11.0)
[2022-03-02] MEDS: ONDANSETRON 4 MG/2 ML INJ (20:30)
[2022-03-02 20:49] LABS: Alanine Aminotransferase 37 IU/L (<35); Albumin 4.7 g/dL (3.5-5.0); Albumin Globulin Ratio 1.6 (1.0-2.8); Alkaline Phosphatase 47 U/L (38-126); Aspartate Aminotransferase 39 IU/L (14-36); BUN Creatinine Ratio 20.5 (6-22); Bilirubin Total 0.6 mg/dL (0.2-1.3); Blood Urea Nitrogen 15 mg/dL (7-17); Calcium 8.9 mg/dL (8.4-10.2); Carbon Dioxide 26 mmol/L (22-32); Chloride 100 mmol/L (98-107); Creatine Kinase 137 U/L (30-135); Estimated Glomerular Filt Rate > 60 mL/min (>60); Globulin 2.9 g/dL (1.7-4.1); Glucose 130 mg/dL (70-100); HEMOLYSIS 23 (0-50); Lipase 151 U/L (23-300); Magnesium 1.9 mg/dL (1.6-2.3); Potassium 3.8 mmol/L (3.4-5.1); Sodium 138 mmol/L (137-145); Total Protein 7.6 g/dL (6.3-8.2)
[2022-03-02] MEDS: LABETALOL 20 MG/4 ML SYRINGE IV (20:55)
[2022-03-02 21:00] LABS: Troponin I < 0.012 ng/mL (0.01-0.034)
[2022-03-02 21:04] LABS: CKMB % Relative Index 0.9 % (1.5-5.0); Creatine Kinase MB 1.23 ng/mL (<2.37)
--- NOTE | 2022-03-02 21:04 | ED.CHESTPAIN ---
HPI - Chest Pain General Chief Complaint: Chest Pain Stated Complaint: CHEST PAIN NAUSEA HIGH BLOOD PRESSURE Time Seen by Provider: 03/02/22 20:22 Source: patient Mode of arrival: Ambulatory History of Present Illness HPI narrative: 51-year-old female nonsmoker with history of diabetes, GERD and hypertension presents with of family friend and a chief complaint of headache and squeezing chest pain gradually worsening over the course of the day. She denies any recent trauma or injury. She denies any fever or chills nor neck pain. She denies obvious provocation, palliation or radiation of the squeezing in her chest. She does feel mildly short of breath but denies any cough or sputum production. She denies blurred vision, trouble speech or extremity numbness, weakness or tingling. She denies change in her medications or diet. She went to bed in her normal state of health and over the course of the day has noted her blood pressure to be rising well into the 200s which is highly atypical for her. She has been taking her medications as directed. She denies exertional dyspnea or any recent exercise intolerance. She denies any unexplained weight change Related Data Home Medications Medication Instructions Recorded Confirmed epinephrine 0.3 mg/0.3 mL 0.3 mg INJ X1 PRN 08/31/19 03/02/22 injection, auto-injector (EpiPen 2-Kyle) hydrochlorothiazide 25 mg tablet 25 mg PO DAILY 08/31/19 03/02/22 metformin 500 mg tablet 1,000 mg PO BID 03/02/22 03/02/22 omeprazole 20 mg capsule,delayed 20 mg PO DAILY 03/02/22 03/02/22 release Allergies Allergy/AdvReac Type Severity Reaction Status Date / Time Penicillins Allergy Verified 03/02/22 20:49 Review of Systems Review of Systems Narrative: GENERAL: see HPI HEENT: Denies sinus pain, ear pain, sore throat, difficulty swallowing, dizziness. RESPIRATORY: Denies dyspnea, cough, wheezing, hemoptysis, sputum. CARDIOVASCULAR: see HPI GASTROINTESTINAL: see HPI : Denies dysuria, frequency, incontinence, hematuria, urinary retention. MUSCULOSKELETAL: denies weakness, joint pain, or bony pain SKIN: Denies rash, skin lesions, or other NEUROLOGIC: Denies weakness, headache, numbness, change in speech, confusion, seizures, incoordination. PSYCHIATRIC: No concerning psychosocial issues. 12 point review of systems is negative except for those stated above Patient History Medical History (Updated 03/03/22 @ 03:02 by Enoch Calhoun DO) Diabetes Social History education level: college Smoking Status: Never smoker Smoking Status: Never smoker alcohol intake frequency: 0-2 drinks per day Alcohol type: wine Substance Use Type: does not use Exam Narrative Exam Narrative: GENERAL: [51] year old patient appears stated age. Well-developed patient, in mild distress. HEAD: Atraumatic. Normocephalic. EYES: Pupils equal round and reactive. Extraocular motions intact. No scleral icterus. No injection or drainage. ENT: Nose without bleeding, purulent drainage. Throat without erythema, tonsillar hypertrophy or exudate. Airway patent. NECK: Trachea midline. Non tender CARDIOVASCULAR: Regular rate and rhythm without murmurs, gallops, or rubs. RESPIRATORY: Clear to auscultation. Breath sounds equal bilaterally. No wheezes, rales, or rhonchi. GASTROINTESTINAL: Abdomen soft, non-tender, nondistended. EXTREMITIES: No edema or joint tenderness. BACK: Nontender without deformity or crepitance. No flank tenderness. NEURO: AOx3. SKIN: No rash or erythema of visible areas Initial Vital Signs Initial Vital Signs: Vital Signs Temperature 97.9 F 03/02/22 19:33 Pulse Rate 84 03/02/22 19:33 Respiratory Rate 20 03/02/22 19:33 Blood Pressure 208/99 H 03/02/22 19:33 Pulse Oximetry 99 03/02/22 19:33 Course Orders Ordered: ED Orders 03/02/22 19:35 XR chest 1V Stat EKG-12 Lead Stat 03/02/22 20:05 Complete Blood Count AUTO DIFF Stat Comprehensive Metabolic Panel Stat Lipase Stat Magnesium Stat Troponin & CK Cardiac Panel Stat 03/02/22 22:52 COVID19 -Nasal RAPID/Pre-Proc Stat Acetaminophen (Acetaminophen 325 Mg Tablet) 650 mg PO Q6HR PRN PRN Reason: Fever/Mild Pain (1-3) Dextrose (Dextrose 50 % In Water 25 Gm/50 Ml Syringe) 25 gm IV PRN PRN PRN Reason: Hypoglycemia Enoxaparin Sodium (Enoxaparin 40 Mg/0.4 Ml Syringe) 40 mg SUBCUT DAILY MADELYN Nicardipine HCl 25 mg/ Sodium (Chloride) 250 mls @ 50 mls/hr IV TITRATE MADELYN; Protocol Insulin Human Lispro (Insulin Lispro 100 Unit/Ml 3ml Vial) 0 unit SUBCUT ACHS MADELYN; Protocol Naloxone HCl (Naloxone 0.4 Mg/Ml Vial) 0.1 mg IV Q2MIN PRN PRN Reason: Opiate Reversal Tramadol HCl (Tramadol 50 Mg Tablet) 50 mg PO Q4H PRN PRN Reason: Pain, Moderate (4-6) Discontinued Medications Enoxaparin Sodium (Enoxaparin 40 Mg/0.4 Ml Syringe) 40 mg SUBCUT DAILY MADELYN Nicardipine HCl 25 mg/ Sodium (Chloride) 250 mls @ 50 mls/hr IV TITRATE MADELYN; Protocol Last Titration: 03/03/22 01:46 Dose: 0 mg/hr, 0 mls/hr Documented by: Titration: 03/03/22 01:31 Dose: 1.5 mg/hr, 15 mls/hr Documented by: Titration: 03/03/22 00:59 Dose: 2 mg/hr, 20 mls/hr Documented by: Titration: 03/03/22 00:22 Dose: 3 mg/hr, 30 mls/hr Documented by: Titration: 03/03/22 00:02 Dose: 1.5 mg/hr, 15 mls/hr Documented by: Titration: 03/02/22 23:41 Dose: 5 mg/hr, 50 mls/hr Documented by: Titration: 03/02/22 23:15 Dose: 7.5 mg/hr, 75 mls/hr Documented by: Admin: 03/02/22 22:44 Dose: 5 mg/hr, 50 mls/hr Documented by: MARILEE Labetalol HCl (Labetalol 20 Mg/4 Ml Syringe) 20 mg IV NOW ONE Stop: 03/02/22 20:52 Last Admin: 03/02/22 20:55 Dose: 20 mg Documented by: JAMES Reevaluation(s) Reevaluation #1: Patient has improvement in blood pressure down to the 150s after labetalol, her headache resolved nearly completely and chest pressure improved significantly. Within 30-40 minutes her blood pressure and resume back up and at this point we decided admission was needed with an IV drip. Vital Signs Vital signs: Vital Signs - 8 hr 03/02/22 19:33 03/02/22 20:32 03/02/22 20:40 Temperature 97.9 F Pulse Rate 84 87 81 Respiratory Rate 20 10 L Blood Pressure 208/99 H 225/102 H Pulse Oximetry 99 99 98 03/02/22 20:45 03/02/22 20:55 03/02/22 21:00 Temperature Pulse Rate 80 85 77 Respiratory Rate 22 14 8 L Blood Pressure 234/109 H Pulse Oximetry 97 97 95 03/02/22 21:01 03/02/22 21:15 03/02/22 21:30 Temperature Pulse Rate 77 71 74 Respiratory Rate 11 L 17 16 Blood Pressure 202/90 H 185/90 H 186/91 H Pulse Oximetry 94 97 97 03/02/22 21:45 03/02/22 22:00 03/02/22 22:15 Temperature Pulse Rate 74 75 79 Respiratory Rate 12 12 21 Blood Pressure 198/96 H 183/90 H 209/96 H Pulse Oximetry 95 95 97 03/02/22 22:33 03/02/22 22:34 03/02/22 22:45 Temperature Pulse Rate 80 78 76 Respiratory Rate 12 18 Blood Pressure 196/87 H 176/74 H Pulse Oximetry 99 97 96 MDM - Chest Pain Lab Data Result diagrams: 03/02/22 20:05 03/02/22 20:05 Labs: Lab Results 03/02/22 03/02/22 03/02/22 Range/Units 20:05 20:05 20:05 WBC 5.6 (4.5-11.0) X10^3/uL RBC 4.34 (4.0-5.2) X10^6/uL Hgb 12.9 (12.0-16.0) g/dL Hct 37.4 (36-46) % MCV 86.3 (80-100) fL MCH 29.7 (26-34) PG MCHC 34.4 (30-36) % RDW 13.9 (11.6-14.8) % Plt Count 186 (150-400) X10^3/uL Neut % (Auto) 62.0 (50-75) % Lymph % (Auto) 25.6 (25-40) % [place] % (Auto) 8.3 (3-14) % Eos % (Auto) 3.1 (2-4) % Baso % (Auto) 1.0 (0-2) % Neut # (Auto) 3500 (2721-4442) /uL Lymph # (Auto) 1400 (8981-3288) /uL [place] # (Auto) 500 (0-900) /uL Eos # (Auto) 200 (0-450) /uL Baso # (Auto) 100 (0-100) /uL Sodium 138 (137-145) mmol/L Potassium 3.8 (3.4-5.1) mmol/L Chloride 100 (98-107) mmol/L Carbon Dioxide 26 (22-32) mmol/L BUN 15 (7-17) mg/dL Creatinine 0.73 (0.52-1.04) mg/dL Estimated GFR > 60 (>60) mL/min BUN/Creatinine Ratio 20.5 (6-22) Glucose 130 H (70-100) mg/dL Hemoglobin A1c 6.4 H (4.0-6.0) % Calcium 8.9 (8.4-10.2) mg/dL Magnesium 1.9 (1.6-2.3) mg/dL Total Bilirubin 0.6 (0.2-1.3) mg/dL AST 39 H (14-36) IU/L ALT 37 H (<35) IU/L Alkaline Phosphatase 47 (38-126) U/L Total Creatine Kinase 137 H (30-135) U/L CK-MB (CK-2) 1.23 (<2.37) ng/mL CK-MB (CK-2) Rel Index 0.9 L (1.5-5.0) % Troponin I < 0.012 (0.01-0.034) ng/mL Total Protein 7.6 (6.3-8.2) g/dL Albumin 4.7 (3.5-5.0) g/dL Globulin 2.9 (1.7-4.1) g/dL Albumin/Globulin Ratio 1.6 (1.0-2.8) Lipase 151 (23-300) U/L SARS-CoV-2 (PCR) (Negative) 03/02/22 Range/Units 22:52 WBC (4.5-11.0) X10^3/uL RBC (4.0-5.2) X10^6/uL Hgb (12.0-16.0) g/dL Hct (36-46) % MCV (80-100) fL MCH (26-34) PG MCHC (30-36) % RDW (11.6-14.8) % Plt Count (150-400) X10^3/uL Neut % (Auto) (50-75) % Lymph % (Auto) (25-40) % [place] % (Auto) (3-14) % Eos % (Auto) (2-4) % Baso % (Auto) (0-2) % Neut # (Auto) (0785-5992) /uL Lymph # (Auto) (5436-9108) /uL [place] # (Auto) (0-900) /uL Eos # (Auto) (0-450) /uL Baso # (Auto) (0-100) /uL Sodium (137-145) mmol/L Potassium (3.4-5.1) mmol/L Chloride (98-107) mmol/L Carbon Dioxide (22-32) mmol/L BUN (7-17) mg/dL Creatinine (0.52-1.04) mg/dL Estimated GFR (>60) mL/min BUN/Creatinine Ratio (6-22) Glucose (70-100) mg/dL Hemoglobin A1c (4.0-6.0) % Calcium (8.4-10.2) mg/dL Magnesium (1.6-2.3) mg/dL Total Bilirubin (0.2-1.3) mg/dL AST (14-36) IU/L ALT (<35) IU/L Alkaline Phosphatase (38-126) U/L Total Creatine Kinase (30-135) U/L CK-MB (CK-2) (<2.37) ng/mL CK-MB (CK-2) Rel Index (1.5-5.0) % Troponin I (0.01-0.034) ng/mL Total Protein (6.3-8.2) g/dL Albumin (3.5-5.0) g/dL Globulin (1.7-4.1) g/dL Albumin/Globulin Ratio (1.0-2.8) Lipase (23-300) U/L SARS-CoV-2 (PCR) Negative (Negative) Discharge Plan Departure Patient Disposition: Admitted As Inpatient Clinical Impression: Hypertensive urgency Admit Date/Time: 03/02/22 22:54 Admit Provider: Lashae Mcghee
[2022-03-02] MEDS: NICARDIPINE 25 MG in SODIUM CHLORIDE 0.9% 240 ML 50 ML IV (22:44)
[2022-03-02 23:13] LABS: COVID19 -Nasal RAPID Negative (Negative)
[2022-03-03] VITALS (71 sets, daily range): BP systolic 123–189; BP diastolic 58–98; PULSE 66–88; RESP 0–31; TEMP 35.9–37; O2SAT 92–97; BMI 33.3
[2022-03-03 00:40] LABS: Hemoglobin A1C% w Est Avg Glu 6.4 % (4.0-6.0)
--- NOTE | 2022-03-03 01:42 | PM.ICURNDS ---
- :: This patient was seen via real time interactive two-way audiovisual telecommunication. Note: Received call from primary team regarding patient who is boarding in ER but has orders to move to ICU for management of presumed Hypertensive Emergency on a Nicardipine drip. I am unable to evaluate patient at this time given that she is in the ER, but I performed a chart review and discussed case with POLICE ACADEMY PROGRAM COORDINATOR as requested. Recommend formal ICU consult when patient arrives in unit. Per my review, patient in ER for elevated BP noted at home. Workup thus far w/o evidence of IVNNY, Encephalopathy, NSTEMI or Neurologic deficits. Patient most likely with uncontrolled hypertension. Recommend UA to evaluate for hematuria. Patient is currently on a Nicardipine drip. On arrival in ER, SBP elevated into the 230s. If patient to be continued on Nicardipine drip, would not drop BP by more than 25% in the first 24 hours (thus target SBP is greater than 175) to avoid over correction. Would favor transition off of Nicardipine drip and addition of PO BP medications as needed.
[2022-03-03 02:04] LABS: Bacteria Urine None Seen; RBC Urine None Seen (0-5/HPF); Squamous Epithelial Cell Urine 0-1 /HPF (0-5/HPF)
[2022-03-03 02:06] LABS: Culture Indicated Urine Cult Not Indicated; WBC Urine 0-1/HPF (0-5/HPF)
[2022-03-03 02:28] LABS: Troponin I < 0.012 ng/mL (0.01-0.034)
[2022-03-03 04:43] LABS: TSH w/ Reflex to FT4 2.67 uIU/mL (0.47-4.68)
--- NOTE | 2022-03-03 04:50 | PM.HP.1 ---
History of Present Illness History of Present Illness Date Patient Seen: 03/03/22 Time Patient Seen: 01:00 Chief complaint: CHEST PAIN NAUSEA HIGH BLOOD PRESSURE Narrative: Nj Brown is a 51-year-old obese female who presented to the emergency department with chest pain, nausea and generalized fatigue. She took her blood pressure at home and it was 200/110. She felt like she was having gas, chest pressure, and headache. She denies fevers sweats or chills, vomiting, abdominal pain, changes in bladder or bowel control, dysuria, or numbing and him going of her upper lower extremities. She does states she is diabetic and her blood glucoses have been under good control however she believes they may be a little worsened since she just returned from a cruise to the [facility]. She states her last A1c was in the low 5s. Her blood pressure is normally controlled with hydrochlorothiazide. The patient was administered IV labetalol with no effect on her blood pressure and the emergency department put her on a nicardipine drip with a request for admission to the ICU for further management of her hypertensive urgency. Her blood pressures did drop into the 120s, this was discussed with the tele director of community education who wanted to have her blood pressure no greater than a 25% drop of her highest systolic pressure, which would place this at a systolic pressure of 175 for the 1st 24 hours. Chest x-ray done in the ED did not identify any acute cardiopulmonary abnormalities. Currently she is afebrile, blood pressure 153/76, heart rate 75, respiratory rate 23, oxygen saturation of 97% on room air she weighs 90.7 kg. CBC is unremarkable, her glucose was 130 with an A1c of 6.4, AST 39, ALT 37, total creatinine kinase was 137, troponins x3 were all negative, TSH is 2.67, UA was free of hematuria or bacterial component, COVID-19 PCR is negative. Patient History Medical History (Updated 03/03/22 @ 04:54 by ADAN Coulter) Diabetes Essential hypertension Surgical History (Updated 03/03/22 @ 04:54 by ADAN Coulter) History of cholecystectomy History of lateral meniscus repair of left knee Family & Social History Family History (Updated 03/03/22 @ 04:59 by ADAN Coulter) Father Coronary artery disease Hypertension Mother Hypertension Tobacco & Substance use: Smoking Status Never smoker alcohol intake frequency 0-2 drinks per day, mostly on the weekends Substance Use Type does not use Meds Home Medications and Allergies Home Medications Medication Instructions Recorded Confirmed Type epinephrine 0.3 mg/0.3 mL 0.3 mg INJ X1 PRN 08/31/19 03/02/22 History injection, auto-injector (EpiPen 2-Kyle) hydrochlorothiazide 25 mg tablet 25 mg PO DAILY 08/31/19 03/02/22 History metformin 500 mg tablet 1,000 mg PO BID 03/02/22 03/02/22 History omeprazole 20 mg capsule,delayed 20 mg PO DAILY 03/02/22 03/02/22 History release Allergies Allergy/AdvReac Type Severity Reaction Status Date / Time Penicillins Allergy Verified 03/02/22 20:49 Review of Systems Review of Systems ROS: Yes All systems reviewed with the patient and are negative except as otherwise documented Exam Vital Signs (past 8 hours): - 03/02/22 20:55 03/02/22 21:00 03/02/22 21:01 Pulse Rate 85 77 77 Respiratory Rate 14 8 L 11 L Blood Pressure 234/109 H 202/90 H Pulse Oximetry 97 95 94 03/02/22 21:15 03/02/22 21:30 03/02/22 21:45 Pulse Rate 71 74 74 Respiratory Rate 17 16 12 Blood Pressure 185/90 H 186/91 H 198/96 H Pulse Oximetry 97 97 95 03/02/22 22:00 03/02/22 22:15 03/02/22 22:33 Pulse Rate 75 79 80 Respiratory Rate 12 21 Blood Pressure 183/90 H 209/96 H Pulse Oximetry 95 97 99 03/02/22 22:34 03/02/22 22:45 03/02/22 22:55 Pulse Rate 78 76 80 Respiratory Rate 12 18 15 Blood Pressure 196/87 H 176/74 H 175/81 H Pulse Oximetry 97 96 95 03/02/22 23:00 03/02/22 23:05 03/02/22 23:10 Pulse Rate 79 82 82 Respiratory Rate 12 14 16 Blood Pressure 171/81 H 165/75 H 185/81 H Pulse Oximetry 97 95 94 03/02/22 23:15 03/02/22 23:20 03/02/22 23:25 Pulse Rate 85 88 91 H Respiratory Rate 15 18 17 Blood Pressure 176/81 H 171/79 H 157/70 H Pulse Oximetry 96 96 94 03/02/22 23:30 03/02/22 23:35 03/02/22 23:43 Pulse Rate 92 H 92 H 90 Respiratory Rate 18 16 23 Blood Pressure 164/74 H 161/73 H 163/82 H Pulse Oximetry 95 96 96 03/02/22 23:45 03/02/22 23:50 03/02/22 23:55 Pulse Rate 92 H 87 90 Respiratory Rate 14 16 18 Blood Pressure 156/75 H 157/76 H 152/69 H Pulse Oximetry 96 96 96 03/03/22 00:00 03/03/22 00:10 03/03/22 00:19 Pulse Rate 88 85 Respiratory Rate 15 14 Blood Pressure 148/72 H 167/78 H Pulse Oximetry 96 95 95 03/03/22 00:20 03/03/22 00:26 03/03/22 00:30 Pulse Rate 85 83 84 Respiratory Rate 19 17 Blood Pressure 175/83 H 157/72 H 159/73 H Pulse Oximetry 97 95 93 03/03/22 00:35 03/03/22 00:40 03/03/22 00:45 Pulse Rate 82 83 83 Respiratory Rate 20 19 19 Blood Pressure 169/80 H 161/74 H 160/76 H Pulse Oximetry 97 95 95 03/03/22 00:50 03/03/22 00:55 03/03/22 01:00 Pulse Rate 84 84 85 Respiratory Rate 14 17 15 Blood Pressure 162/75 H 154/72 H 172/81 H Pulse Oximetry 95 92 96 03/03/22 01:05 03/03/22 01:11 03/03/22 01:15 Pulse Rate 83 84 81 Respiratory Rate 14 19 16 Blood Pressure 168/82 H 169/83 H Pulse Oximetry 96 97 95 03/03/22 01:20 03/03/22 01:30 03/03/22 01:40 Pulse Rate 82 79 79 Respiratory Rate 16 18 22 Blood Pressure 155/74 H 148/71 H 137/74 Pulse Oximetry 96 93 92 03/03/22 01:45 03/03/22 01:46 03/03/22 02:00 Pulse Rate 77 76 75 Respiratory Rate 15 13 13 Blood Pressure 146/77 H 143/80 H Pulse Oximetry 97 97 94 03/03/22 02:15 03/03/22 02:30 03/03/22 02:45 Pulse Rate 75 78 73 Respiratory Rate 15 18 Blood Pressure 143/79 H 142/80 H 123/69 Pulse Oximetry 94 94 94 03/03/22 03:00 03/03/22 03:15 03/03/22 03:30 Pulse Rate 73 76 70 Respiratory Rate 15 22 16 Blood Pressure 126/61 152/73 H 146/73 H Pulse Oximetry 95 96 94 Oxygen Delivery Method Room Air Narrative Exam Narrative: Gen: Alert, oriented, obese 51 y.o. female, NAD HEENT: normocephalic, atraumatic, conjunctiva clear, sclera non-icteric, oral mucosa pink and moist Neck: supple, full ROM, no JVD, trachea is midline Resp: Lungs CTA, non-labored breathing CV: RRR, no murmur or rubs Abd: soft, non-tender, normoactive BTs Skin: no lesions or rashes, dry and intact Neuro: Alert and oriented X 4 w/no focal deficits. Speech clear and coherent. Extremities: moves all 4 extremities, is ambulatory, negative Dodie?s sign Psyche: normal mood and affect. Objective Labs Result Diagrams: 03/02/22 20:05 03/02/22 20:05 Labs: Laboratory Results - last 24 hr 03/02/22 03/02/22 03/02/22 20:05 20:05 20:05 WBC 5.6 RBC 4.34 Hgb 12.9 Hct 37.4 MCV 86.3 MCH 29.7 MCHC 34.4 RDW 13.9 Plt Count 186 Neut % (Auto) 62.0 Lymph % (Auto) 25.6 [place] % (Auto) 8.3 Eos % (Auto) 3.1 Baso % (Auto) 1.0 Neut # (Auto) 3500 Lymph # (Auto) 1400 [place] # (Auto) 500 Eos # (Auto) 200 Baso # (Auto) 100 Sodium 138 Potassium 3.8 Chloride 100 Carbon Dioxide 26 BUN 15 Creatinine 0.73 Estimated GFR > 60 BUN/Creatinine Ratio 20.5 Glucose 130 H Hemoglobin A1c 6.4 H Calcium 8.9 Magnesium 1.9 Total Bilirubin 0.6 AST 39 H ALT 37 H Alkaline Phosphatase 47 Total Creatine Kinase 137 H CK-MB (CK-2) 1.23 CK-MB (CK-2) Rel Index 0.9 L Troponin I < 0.012 Total Protein 7.6 Albumin 4.7 Globulin 2.9 Albumin/Globulin Ratio 1.6 Lipase 151 TSH Urine RBC Urine WBC Ur Squamous Epith Cells Urine Bacteria Ur Culture Indicated? SARS-CoV-2 (PCR) 03/02/22 03/02/22 03/03/22 20:05 22:52 01:51 WBC RBC Hgb Hct MCV MCH MCHC RDW Plt Count Neut % (Auto) Lymph % (Auto) [place] % (Auto) Eos % (Auto) Baso % (Auto) Neut # (Auto) Lymph # (Auto) [place] # (Auto) Eos # (Auto) Baso # (Auto) Sodium Potassium Chloride Carbon Dioxide BUN Creatinine Estimated GFR BUN/Creatinine Ratio Glucose Hemoglobin A1c Calcium Magnesium Total Bilirubin AST ALT Alkaline Phosphatase Total Creatine Kinase CK-MB (CK-2) CK-MB (CK-2) Rel Index Troponin I Total Protein Albumin Globulin Albumin/Globulin Ratio Lipase TSH 2.67 Urine RBC None seen Urine WBC 0-1/hpf Ur Squamous Epith Cells 0-1 /hpf Urine Bacteria None seen Ur Culture Indicated? Cult not indicated SARS-CoV-2 (PCR) Negative 03/03/22 01:53 WBC RBC Hgb Hct MCV MCH MCHC RDW Plt Count Neut % (Auto) Lymph % (Auto) [place] % (Auto) Eos % (Auto) Baso % (Auto) Neut # (Auto) Lymph # (Auto) [place] # (Auto) Eos # (Auto) Baso # (Auto) Sodium Potassium Chloride Carbon Dioxide BUN Creatinine Estimated GFR BUN/Creatinine Ratio Glucose Hemoglobin A1c Calcium Magnesium Total Bilirubin AST ALT Alkaline Phosphatase Total Creatine Kinase CK-MB (CK-2) CK-MB (CK-2) Rel Index Troponin I < 0.012 Total Protein Albumin Globulin Albumin/Globulin Ratio Lipase TSH Urine RBC Urine WBC Ur Squamous Epith Cells Urine Bacteria Ur Culture Indicated? SARS-CoV-2 (PCR) Assessment & Plan Assessment & Plan narrative: Nj Brown is admitted to the ICU now boarding in the ED for further management of a hypertensive urgency. 1. Hypertensive urgency, acute, present on admission Patient was on a nicardipine drip until approximately 3:30 a.m. and her systolic blood pressures are now in the 150s. She will need to be started on likely a beta-fidel for blood pressure control Troponins are all negative. 2. Diabetes type 2 with the A1c of 6.4, suboptimally controlled Elevation likely due to her recent trip She is written for carb controlled diet and low-dose insulin correctional scale 3. Risk stratification Lipid panel ordered for this morning and pending. VTE Prophylaxis: Wells risk score 0 [X]Enoxaparin 40 mg subQ once daily Bilateral SCDs Patient is admitted to the inpatient ICU service due to the severity of disease, risks of further disease progression and this stay is expected to exceed 2 midnights. FEN: IV fluids: saline lock, diet: carb controlled heart healthy, labs: CBC, C/BMP, liver enzymes, Mag, PT/INR Consultants Intercept ICU care and involvement in the patient?s care is appreciated. Please contact when the patient reaches the floor Dispo: probable discharge to home Code status: Full Code as discussed with the patient. [X] I have utilized all available immediate resources to obtain, update, or review of the patient's current medications COVID-19 COVID-19 status: Negative Result date/Date tested (Pos, Neg/Pending): 03/03/22 Time Spent With Patient Critical Care time: I spent a total of [] minutes of critical care time on this patient's care today; this time is exclusive of procedural time.
[2022-03-03 07:30] LABS: Cholesterol 140 mg/dL (140-199); HDL Cholesterol 40 mg/dL (40-60); LDL Cholesterol Calculated 69 mg/dL (<100); Triglycerides 155 mg/dL (35-150)
--- NOTE | 2022-03-03 08:35 | PC.NURSE ---
spoke with dr. herman to clarify orders, pt is currently off niCardipine gtt, she will be starting lisinopril, to not give insulin, pt will take her dose of metformin. pt is to have breakfast this am.
[2022-03-03] MEDS: PANTOPRAZOLE DR 20 MG TABLET PO (08:40)
[2022-03-03] MEDS: ENOXAPARIN 40 MG/0.4 ML SYRINGE SUBCUT (08:41)
[2022-03-03] MEDS: METOPROLOL ER 50 MG TABLET PO ×2 (09:28→20:01)
--- NOTE | 2022-03-03 09:30 | PC.NURSE ---
pt took own metformin, 500mg tab x2.
--- NOTE | 2022-03-03 10:04 | PC.NURSE ---
pt ate breakfast .
[2022-03-03 10:55] LABS: Troponin I < 0.012 ng/mL (0.01-0.034)
--- NOTE | 2022-03-03 13:39 | PC.NURSE ---
Pt to room 221 via bed. Oriented to room, call light, tv controls, and bed controls. Pt has no history of falls. Pt states she is feeling a bit nauseated and requests Zofran-ordered. Pt states she has no chest pain but does have a bit of chest pressure. Dr. Benton notified that Pt is in her room.
[2022-03-03] MEDS: AMLODIPINE 5 MG TABLET PO (13:44)
[2022-03-03] MEDS: ONDANSETRON 4 MG/2 ML INJ IV (13:44)
[2022-03-03 14:36] LABS: Troponin I < 0.012 ng/mL (0.01-0.034)
[2022-03-03] MEDS: ACETAMINOPHEN 325 MG TABLET 650 MG PO ×2 (15:22→22:17)
--- NOTE | 2022-03-03 15:48 | DI.ECHO.S_ITS ---
[facility]---------+ [facility] +---------+ : : [address] : : : : [id number] : : : : Phone: [phone] Echocardiogram Report + + :Name: AB LUGO Study Date: 03/04/2022 Height: 65 in : :[facility] ReadingLocation: Weight: 200 lb : : Gender: Female BSA: 2.0 m2 : :: 1970 Age: 51 yrs BP: 148/76 mmHg: :Reason For Study: Hypertension : : Performed By: Jennifer Luna : :Referring: HOMERO LINDQUIST : + + Interpretation Summary - The ejection fraction is estimated to be 60-65%. - Indeterminant dyastolic dysfunction. - The right ventricle is normal in size and function. - Pulmonary artery pressures cannot be estimated because of the lack of a measurable TR jet velocity. - No significant valvular disease. - No prior studies available for comparison. Procedure: A two-dimensional transthoracic echocardiogram with color flow and Doppler was performed. The study quality was technically adequate. There is no prior echocardiogram noted for this patient. The patient was in sinus rhythm with heart rates between 64-91 bpm during the exam. Left Ventricle: The left ventricle is normal in size and wall thickness. The ejection fraction is estimated to be 60-65%. There are no focal wall motion abnormalities. Diastolic function could not be accurately assessed due to unobtainable data. Right Ventricle: The right ventricle is normal in size and function. Atria: The left atrial size is normal. Right atrial size is normal. There is no Doppler evidence for an interatrial shunt. Mitral Valve: The mitral valve is normal in structure and function. There is trace mitral regurgitation. Aortic Valve: The aortic valve is trileaflet. The aortic valve opens well. There is no aortic valve stenosis. There is trace aortic regurgitation. Tricuspid Valve: The tricuspid valve is normal in structure and function. There is trace tricuspid regurgitation. Pulmonary artery pressures cannot be estimated because of the lack of a measurable TR jet velocity. Pulmonic Valve: The pulmonic valve leaflets are thin and pliable; valve motion is normal. There is a trace or physiologic amount of pulmonic regurgitation. Great Vessels: The aortic root is normal size. The dimensions of the ascending aorta are normal. The IVC is of normal diameter and collapses greater than 50% with a sniff. This suggests a low right atrial pressure of 3 mm Hg. Pericardium/ Pleura There is no pericardial effusion. There is no pleural effusion. MMode/2D Measurements & Calculations LVIDd: 4.6 cm LVOT diam: 2.0 cm LVIDs: 3.0 cm Ao root diam: 2.9 cm FS: 34.8 % asc Aorta Diam: 3.3 cm IVSd: 0.88 cm Ao Arch Diam (Prox Trans): 3.1 cm LVPWd: 1.1 cm LV tamez. diameter/BSA (cm/m^2): 2.3 LV sys. diameter/BSA (cm/m^2): 1.5 LA A2 area: 21.0 cm2 RA long axis: 5.0 cm LA A4 area: 18.0 cm2 RA area: 13.5 cm2 LA length (vol): 5.8 cm RA vol: 31.4 ml LA vol: 55.8 ml RA : 15.9 ml/m2 LA vol index: 28.2 ml/m2 IVC diam: 1.7 cm RVD1 (basal): 3.1 cm TAPSE: 2.0 cm Doppler Measurements & Calculations Ao V2 max: 173.3 cm/sec LVOT Max Sincere: 123.6 cm/sec Ao V2 mean: 111.8 cm/sec LV V1 max P.1 mmHg Ao max P.0 mmHg LV V1 VTI: 29.3 cm Ao mean P.8 mmHg RADHA(I,D): 2.5 cm2 Ao V2 VTI: 37.0 cm RADHA(V,D): 2.3 cm2 sev ratio: 0.79 RADHA indexed to BSA (cm^2/m^2): 1.3 MV E max sincere: 93.7 cm/sec PA V2 max: 90.7 cm/sec MV A max sincere: 72.5 cm/sec PA V2 mean: 61.5 cm/sec MV E/A: 1.3 PA mean P.7 mmHg Med Peak E' Sincere: 7.2 cm/sec PA pr(Accel): 15.6 mmHg E/E' med: 12.9 Lat Peak E' Sincere: 6.1 cm/sec E/E' lat: 15.4 E/e' average: 14.2 MV dec time: 0.23 sec SV(LVOT): 92.8 ml Reading Physician:AGUEDA
[2022-03-03] MEDS: METFORMIN HCL 500 MG TABLET 1000 MG PO (16:40)
[2022-03-03] MEDS: TRAMADOL 50 MG TABLET PO (20:01)
[2022-03-04 01:00] VITALS: BP 143/72; PULSE 67; RESP 18; TEMP 36.6; O2SAT 98
[2022-03-04 05:00] VITALS: BP 148/76; PULSE 64; RESP 18; TEMP 36.5; O2SAT 98
[2022-03-04 06:03] LABS: Add Manual Diff / Slide Review NO; Basophils Absolute Auto 0 /uL (0-100); Basophils Percent Auto 0.8 % (0-2); Eosinophils Absolute Auto 200 /uL (0-450); Eosinophils Percent Auto 4.5 % (2-4); Hematocrit 38.3 % (36-46); Hemoglobin 12.9 g/dL (12.0-16.0); Lymphocytes Absolute Auto 1400 /uL (1100-4500); Lymphocytes Percent Auto 29.5 % (25-40); Mean Corpuscular HGB Conc 33.6 % (30-36); Mean Corpuscular Hemoglobin 29.3 PG (26-34); Mean Corpuscular Volume 87.1 fL (80-100); Monocytes Absolute Auto 400 /uL (0-900); Monocytes Percent Auto 8.4 % (3-14); Neutrophils Absolute Auto 2700 /uL (1500-7000); Neutrophils Percent Auto 56.8 % (50-75); Platelet Count 175 X10^3/uL (150-400); White Blood Cell Count 4.8 X10^3/uL (4.5-11.0)
[2022-03-04 06:12] LABS: BUN Creatinine Ratio 22.6 (6-22); Blood Urea Nitrogen 14 mg/dL (7-17); Carbon Dioxide 27 mmol/L (22-32); Chloride 104 mmol/L (98-107); Estimated Glomerular Filt Rate > 60 mL/min (>60); Glucose 137 mg/dL (70-100); HEMOLYSIS < 15 (0-50); Magnesium 1.9 mg/dL (1.6-2.3); Sodium 141 mmol/L (137-145)
[2022-03-04 08:00] VITALS: BP 159/71; PULSE 75; RESP 16; TEMP 36.1; O2SAT 97
[2022-03-04 09:19] VITALS: BP 159/71
[2022-03-04] MEDS: METOPROLOL ER 50 MG TABLET PO (09:19)
[2022-03-04] MEDS: ENOXAPARIN 40 MG/0.4 ML SYRINGE SUBCUT (09:19)
[2022-03-04] MEDS: AMLODIPINE 5 MG TABLET PO (09:20)
[2022-03-04] MEDS: ACETAMINOPHEN 325 MG TABLET 650 MG PO (09:20)
[2022-03-04] MEDS: METFORMIN HCL 500 MG TABLET 1000 MG PO ×2 (09:20→17:10)
[2022-03-04] MEDS: PANTOPRAZOLE DR 20 MG TABLET PO (09:20)
[2022-03-04 12:00] VITALS: BP 147/85; PULSE 74; RESP 14; TEMP 36.5; O2SAT 96
--- NOTE | 2022-03-04 13:57 | CM.IDA ---
DCP Assessment Patient is 51 y/o female who presents to due to concern for chest pain, nausea, and fatigue. Patient has hx of Diabetes type 2, GERD, and hypertension. Patient was in stress test when EXECUTIVE MARKETING ASSISTANT attempted to meet with patient. Per RN, there are no needs for patient, patient is A/O and independent with ADLs. 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 Per RN if patient's stress test is negative, patient to d/c to home afterwards. Plan: Patient to d/c to home when medically clear, no DCP anticipated needs at this time. KRYSTAL Castro Discharge Planning/Care Management CM Discharge Assessment Start: 03/04/22 13:55 Freq: Status: Active Protocol: Document 03/04/22 13:55 LN (Rec: 03/04/22 13:57 LN [id number]) Discharge Planning Assessment Assigned Bellman Driver KRYSTAL Sanchez Advance Directives? No History Provided By Medical Record Has Patient been admitted in last 30 No days? Prior Living Arrangements House Household Members children Type of transporation used prior to Drives own vehicle admit Independent with ADL's Yes Is patient alert and oriented? Yes Please Provide Date Initial DC 03/04/22 Assessment Was Performed
--- NOTE | 2022-03-04 14:11 | PC.NURSE ---
Pt back to room from Stress Test. States she has no chest pain or pressure but has had an unrelenting headache all day. Pt given food to eat and raisa margo to drink. Pt denies needs at this time.
[2022-03-04 16:00] VITALS: BP 136/87; PULSE 82; RESP 14; TEMP 36.3; O2SAT 96
--- NOTE | 2022-03-04 17:22 | P.DS_ITS ---
History of Present Illness History of Present Illness Date Patient Seen: 03/04/22 Time Patient Seen: 17:23 Chief complaint: CHEST PAIN NAUSEA HIGH BLOOD PRESSURE Narrative: Nj Bronw is a 51-year-old obese female who presented to the emergency department with chest pain, nausea and generalized fatigue.? She took her blood pressure at home and it was 200/110.? She felt like she was having gas, chest pressure, and headache.? She denies fevers sweats or chills, vomiting, abdominal pain, changes in bladder or bowel control, dysuria, or numbing and him going of her upper lower extremities.? She does states she is diabetic and her blood glucoses have been under good control however she believes they may be a little worsened since she just returned from a cruise to the [facility].? She states her last A1c was in the low 5s.? Her blood pressure is normally controlled with hydrochlorothiazide.? The patient was administered IV labetalol with no effect on her blood pressure and the emergency department put her on a nicardipine drip with a request for admission to the ICU for further management of her hypertensive urgency.? Her blood pressures did drop into the 120s, this was discussed with the tele credit resolution representative who wanted to have her blood pressure no greater than a 25% drop of her highest systolic pressure, which would place this at a systolic pressure of 175 for the 1st 24 hours. Chest x-ray done in the ED did not identify any acute cardiopulmonary abnormalities.? Currently she is afebrile, blood pressure 153/76, heart rate 75, respiratory rate 23, oxygen saturation of 97% on room air she weighs 90.7 kg.? CBC is unremarkable, her glucose was 130 with an A1c of 6.4, AST 39, ALT 37, total creatinine kinase was 137, troponins x3 were all negative, TSH is 2.67, UA was free of hematuria or bacterial component, COVID-19 PCR is negative. Discharge Providers Provider Date of admission: 03/02/22 22:54 Discharge Date: 03/04/22 Primary care physician: Eric Carranza DO Consults: 03/03/22 00:10 Consult to Tele-credit resolution representative Routine Comment: Consulting Provider: Rosemarie Tele-intensivists Reason for consultation: Breakfast Supervisor services Has provider been notified: Yes Discharge provider: Ines Benton MD Summary Hospital Course Discharge Diagnosis: 1. Hypertensive urgency, resolved 2. Chest pain, likely noncardiac 3. Type 2 diabetes 4. GERD Hospital Course: Patient is a 51-year-old female who was admitted to the hospital with chest pain nausea and generalized fatigue. She took her blood pressure at home and noted it to be 200/110. She was seen and evaluated in the emergency room and started on a nicardipine drip. Her blood pressure improved. The patient did report chest pain. Her cardiac enzymes and EKG was negative. The patient had a cardiac echo. Revealed an ejection fraction of 60 65%. There was indeterminate diastolic dysfunction. Right ventricle size was normal. There was no significant valvular disease. Patient had a stress test as well. Her stress test was negative for any evidence of reversible ischemia. Patient was placed on amlodipine, and metoprolol for blood pressure control. Blood pressure improved to 136/87. She was deemed appropriate for discharge and arrangements were made for her to discharge home. Patient will follow-up with her PCP next week. Status at Discharge Cognitive/behavioral status at discharge: oriented Functional status at discharge: independent ambulation Overall status at discharge: patient is back to baseline Exam Vital Signs (past 8 hours): - 03/04/22 12:00 03/04/22 16:00 Temperature 97.7 F 97.3 F L Pulse Rate 74 82 Respiratory Rate 14 14 Blood Pressure 147/85 H 136/87 Pulse Oximetry 96 96 Oxygen Delivery Method Room Air Oxygen Flow Rate 0 Narrative Exam Narrative: Pleasant female in no obvious distress Resp Other: Lungs clear to auscultation Cardio Other: Cardiac exam cardiac exam: Regular rate and rhythm normal S1-S2 Extrem Other: No edema Objective Labs Result Diagrams: 03/04/22 05:17 03/04/22 05:17 Labs: Laboratory Results - last 24 hr 03/04/22 03/04/22 05:17 05:17 WBC 4.8 RBC 4.40 Hgb 12.9 Hct 38.3 MCV 87.1 MCH 29.3 MCHC 33.6 RDW 14.0 Plt Count 175 Neut % (Auto) 56.8 Lymph % (Auto) 29.5 [place] % (Auto) 8.4 Eos % (Auto) 4.5 H Baso % (Auto) 0.8 Neut # (Auto) 2700 Lymph # (Auto) 1400 [place] # (Auto) 400 Eos # (Auto) 200 Baso # (Auto) 0 Sodium 141 Potassium 4.0 Chloride 104 Carbon Dioxide 27 BUN 14 Creatinine 0.62 Estimated GFR > 60 BUN/Creatinine Ratio 22.6 H Glucose 137 H Calcium 9.0 Magnesium 1.9 PFSH Medical History (Updated 03/03/22 @ 04:54 by ADAN Coulter) Diabetes Essential hypertension Surgical History (Updated 03/03/22 @ 04:54 by ADAN Coulter) History of cholecystectomy History of lateral meniscus repair of left knee Family History (Updated 03/03/22 @ 04:59 by ADAN Coulter) Father Coronary artery disease Hypertension Mother Hypertension Social History household members: children education level: college Smoking Status: Never smoker Discharge Assessment & Plan Assessment and Plan Assessment: 1.Hypertensive urgency, resolved 2. Chest pain, likely noncardiac 3. Type 2 diabetes 4. GERD Plan of Treatment: discharge home Discharge Plan Discharge Plan Patient Disposition: Home Discharge orders & Medications Prescriptions: New metformin 500 mg Tablet 1,000 mg PO 0800,1700 30 Days Qty: 120 0RF metoprolol succinate 50 mg Tablet Extended Release 24 Hr 50 mg PO BID 30 Days Qty: 60 0RF amlodipine [Norvasc] 5 mg Tablet 5 mg PO DAILY Qty: 30 0RF Continued hydrochlorothiazide 25 mg tablet 25 mg PO DAILY 0RF epinephrine [EpiPen 2-Kyle] 0.3 MG/0.3 ML auto-injector 0.3 mg INJ X1 PRN (Reason: Allergic Reaction) 0RF omeprazole 20 mg capsule,delayed release(DR/EC) 20 mg PO DAILY 0RF Discontinued metformin 500 mg tablet 1,000 mg PO BID 0RF Follow up/Referrals: Eric Carranza DO [Primary Care Provider] - Discharge Health Status Multidrug resistant organism: No MDRO Diet/Activity/Treatments Diet: Low-sodium and Low-cholesterol Visit Report/Discharge Packet Instructions: Amlodipine/Benazepril (Alternative Therapy), Essential Hypertension, DI for Chest Pain, Metoprolol Discharge Data Primary Care Provider: Eric Carranza Quality VTE Deep Vein Thrombosis/Pulmonary Embolism Present on Admission: No
--- NOTE | 2022-03-04 18:03 | PC.NURSE ---
Pt is dressed and ready for discharge home with her Mother Yesenia. IV and Tele were removed. Went over d\c instructions with Pt-discussed d\c meds, time of last dose, cautioned Pt to get up slowly from sitting or laying since she will be starting new bp meds. Reviewed stroke education and follow up. Pt denied further questions and was taken out via w/c by RN to pov with Family and all belongings.
--- NOTE | 2022-03-04 19:01 | DI.NM.S_ITS ---
DATE OF SERVICE: 03/04/2022 PROCEDURE: Exercise perfusion study. INDICATION: Chest pain with underlying hypertension and diabetes mellitus. RADIOPHARMACEUTICAL: 26.2 millicurie technetium-99m Myoview IV was injected at stress and 11.5 millicurie technetium-99m Myoview IV was injected at rest. CARDIAC STRESS: The patient underwent exercise perfusion study under the supervision of an attending staff. The patient walked on Dc protocol for 9 minutes and 21 seconds, achieved a maximum heart rate of 144, which was 86 percent of target heart rate. Baseline blood pressure 150/82. Peak blood pressure 208/80 with mildly hypertensive blood pressure response. No anginal symptoms. The patient had some shortness of breath. Baseline rhythm was sinus. During stress, there was some nonspecific upsloping ST depression in inferolateral leads. No significant arrhythmias seen. RAW DATA: There was breast shadow seen. GATED STUDY: Resting LV ejection fraction 73 percent and stress LV ejection fraction 79 percent. No significant wall motion abnormalities seen. Resting end-diastolic volume 109 mL. TID ratio 0.96, which is within normal limits. Lung/heart ratio 0.63, which is within normal limits. MYOCARDIAL PERFUSION SCAN: Stress supine, resting supine and stress prone images were compared to each other. Stress supine and resting supine images revealed minimally decreased perfusion of anterior apex, which got resolved during stress prone images, suggestive of breast tissue attenuation artifact. Stress prone images revealed normal myocardial perfusion. CONCLUSION: This is a normal myocardial perfusion study with evidence of breast tissue attenuation artifact, which got resolved during prone images. The patient achieved 10.1 metabolic equivalents of workload. Fair exercise tolerance. Mildly hypertensive blood pressure response. Preserved left ventricular function. No significant arrhythmias seen. No anginal symptoms. As far as perfusion scan is concerned, this is a low-risk myocardial perfusion scan. Seven Brown - ARIES/italia/scarlett doc#: [id number]/job#: [id number] dd: 03/04/2022 17:03:00 dt: 03/04/2022 18:47:00 DICTATING MD/COPIES TO: James Robles MD COPIES MNE: HANY;
== END 2022-03-04 18:06 | disposition home or self-care (01) ==
LOC: ED 20:22 → AC 23:12
PROVIDERS: Admitting Provider Nurse Practitioner Family; Emergency Provider Emergency Medicine; PCP Family Medicine; Referring Provider Emergency Medicine; Visit Provider Nurse Practitioner Family
DX: I16.0 Hypertensive urgency (principal); R07.9 Chest pain, unspecified; E11.9 Type 2 diabetes mellitus without complications; R51.9 Headache, unspecified; R11.0 Nausea; R53.83 Other fatigue; E66.9 Obesity, unspecified; K21.9 Gastro-esophageal reflux disease without esophagitis; Z79.84 Long term (current) use of oral hypoglycemic drugs; Z20.822 Contact with and (suspected) exposure to COVID-19
CPT/HCPCS: 36415; 71045; 78452; 80048; 80053; 80061; 81015; 82550; 82553; 82962; 83036; 83690; 83735; 84443; 84484; 85025; 87635; 93005; 93017; 93306; 94760; 96365; 96366; 96372; 96375; 99284; C9803; G0378; A9502; J1650; J1815; J2405

== ENCOUNTER → 2024-10-16 14:11 | Outpatient (CLI) | payer OTHER, SELFPAY ==
[2022-03-03 13:16] VITALS: BMI 33.3
== END ==
PROVIDERS: PCP Family Medicine; Visit Provider Nurse Practitioner Family
DX: J02.9 Acute pharyngitis, unspecified (principal); R30.0 Dysuria
CPT/HCPCS: 87070; 87086

== ENCOUNTER → 2024-10-16 14:32 | Outpatient (CLI) | payer OTHER, SELFPAY ==
[2022-03-03 13:16] VITALS: BMI 33.3
--- NOTE | 2024-10-16 14:33 | DI.RAD.S_ITS ---
PROCEDURE: XR CHEST 2V INDICATIONS: Cough TECHNIQUE: 2 views of the chest were acquired. COMPARISON: [facility], CR, XR CHEST 1V, 03/02/2022, 20:21. FINDINGS: Surgical changes and devices: None. Lungs and pleura: Lungs are clear. No pleural effusions or pneumothorax. Mediastinum: Mediastinal contours are normal. Heart size is normal. Bones and chest wall: No suspicious bony abnormalities. Soft tissues appear unremarkable. IMPRESSION: No acute cardiopulmonary abnormality is seen. Approved by: Adama Edmond M.D. on 10/16/2024 at 16:07
== END ==
PROVIDERS: PCP Nurse Practitioner Family; Referring Provider Nurse Practitioner Family; Visit Provider Nurse Practitioner Family
DX: R05.9 Cough, unspecified (principal); J02.9 Acute pharyngitis, unspecified; R30.0 Dysuria
CPT/HCPCS: 71046; 87070; 87086

== ENCOUNTER 2025-03-09 03:28 | Emergency (ER) | payer OTHER, SELFPAY ==
[2022-03-03 13:16] VITALS: BMI 33.3
[2025-03-09] VITALS (13 sets, daily range): BP systolic 114–150; BP diastolic 57–80; PULSE 69–92; RESP 10–20; TEMP 36.3; O2SAT 93–98; BMI 38.1
--- NOTE | 2025-03-09 03:40 | DI.RAD.S_ITS ---
PROCEDURE: XR CHEST 1V INDICATIONS: chest pain TECHNIQUE: One view of the chest was acquired. COMPARISON: [facility], CR, XR CHEST 2V, 10/16/2024, 14:39. FINDINGS: Surgical changes and devices: None. Lungs and pleura: Lungs are clear. No pleural effusions or pneumothorax. Mediastinum: Mediastinal contours appear normal. Heart size is normal. Bones and chest wall: No suspicious bony lesions. Overlying soft tissues appear unremarkable. IMPRESSION: No acute cardiopulmonary pathology. No discrepancies. Dictated by: Eugene Strickland M.D. on 03/09/2025 at 8:41 Approved by: Eugene Strickland M.D. on 03/09/2025 at 8:42
--- NOTE | 2025-03-09 03:41 | ED_ITS ---
HPI - Chest Pain General Chief Complaint: Chest Pain Stated Complaint: chest/arm pain and nausea Time Seen by Provider: 03/09/25 03:41 Source: patient Mode of arrival: Ambulatory Limitations: no limitations History of Present Illness HPI narrative: 54-year-old female history of hypertension, diabetes, and GERD came in this evening started having right-sided chest pain radiating to right shoulder along with nausea but no diaphoresis that she describes as a dull ache and rates as 6/10. This all started after she was doing yd work Wednesday and had right-sided chest pain but it subsided on Wednesday and came back evening again despite taking Advil. She had a stress test done 3 years ago in [place] that apparently was normal at that time. She has not take any aspirin prior to arrival here today. Other than what is stated 14 point review of system is negative Related Data Home Medications Medication Instructions Recorded Confirmed epinephrine 0.3 mg/0.3 mL 0.3 mg INJ X1 PRN Allergic Reaction 08/31/19 03/09/25 injection, auto-injector (EpiPen 2-Kyle) amlodipine 10 mg tablet 10 mg PO DAILY 03/09/25 03/09/25 glimepiride 2 mg tablet 2 mg PO BID 03/09/25 03/09/25 hydrochlorothiazide 25 mg tablet 25 mg PO DAILY 03/09/25 03/09/25 liraglutide 0.6 mg/0.1 mL (18 mg/3 mg SUBCUT 03/09/25 mL) subcutaneous pen injector losartan 50 mg tablet 50 mg PO DAILY 03/09/25 03/09/25 metformin 500 mg tablet 1,000 mg PO BID 03/09/25 03/09/25 metoprolol succinate 50 mg 50 mg PO BID 03/09/25 03/09/25 tablet,extended release 24 hr omeprazole 20 mg capsule,delayed 20 mg PO DAILY 03/09/25 03/09/25 release trazodone 100 mg tablet 100 mg PO ONCE PM 03/09/25 03/09/25 Allergies Allergy/AdvReac Type Severity Reaction Status Date / Time lisinopril Allergy Anaphylaxis Verified 10/16/24 14:08 Penicillins Allergy Verified 10/16/24 14:08 Patient History Medical History (Updated 03/09/25 @ 06:34 by Lee Wyatt DO) Essential hypertension Diabetes Surgical History (Updated 03/03/22 @ 04:54 by ADAN Coulter) History of lateral meniscus repair of left knee History of cholecystectomy Family History (Updated 03/03/22 @ 04:59 by ADAN Coulter) Father Coronary artery disease Hypertension Mother Hypertension Social History household members: children education level: college Smoking Status: Never smoker Smoking Status: Never smoker alcohol intake frequency: 0-2 drinks per day Alcohol type: wine Exam Narrative Exam Narrative: GENERAL: [54] year old patient appears stated age. Well-developed patient, in mild distress. HEAD: Atraumatic. Normocephalic. EYES: Pupils equal round and reactive. Extraocular motions intact. No scleral icterus. No injection or drainage. ENT: Nose without bleeding, purulent drainage. Throat without erythema, tonsillar hypertrophy or exudate. Airway patent. NECK: Trachea midline. Non tender CARDIOVASCULAR: Regular rate and rhythm without murmurs, gallops, or rubs. RESPIRATORY: Clear to auscultation. Breath sounds equal bilaterally. No wheezes, rales, or rhonchi. GASTROINTESTINAL: Abdomen soft, non-tender, nondistended. EXTREMITIES: No edema or joint tenderness. BACK: Nontender without deformity or crepitance. No flank tenderness. NEURO: AOx3. SKIN: No rash or erythema of visible areas Initial Vital Signs Initial Vital Signs: Vital Signs Temperature 97.4 F L 03/09/25 03:31 Pulse Rate 88 03/09/25 03:31 Respiratory Rate 18 03/09/25 03:31 Blood Pressure 150/80 H 03/09/25 03:31 Pulse Oximetry 96 03/09/25 03:31 Oxygen Delivery Method Room Air 03/09/25 03:31 Scores HEART Score Heart Score history: Moderately Suspicious Heart Score EKG: Normal Heart Score Age: 45-64 years old Heart Score risk factors: 1-2 risk factors Heart Score troponin: < or = to normal limit Heart Score Total: 3 Course Orders Ordered: ED Orders 03/09/25 03:40 XR chest 1V Stat EKG-12 Lead Stat 03/09/25 04:20 Complete Blood Count AUTO DIFF Stat Comprehensive Metabolic Panel Stat Lipase Stat Magnesium Stat NT-proBNP (BNP-Adult 18+) Stat PTT Partial Thromboplastin Roe Stat Prothrombin Time INR Stat Troponin & CK Cardiac Panel Stat Discontinued Medications Acetaminophen (Acetaminophen 325 Mg Tablet) 975 mg PO NOW ONE Stop: 03/09/25 05:21 Last Admin: 03/09/25 05:24 Dose: 975 mg Documented By: BEENA Aspirin (Aspirin 81 Mg Chew Tab) 324 mg PO NOW ONE Stop: 03/09/25 03:41 Last Admin: 03/09/25 04:10 Dose: 324 mg Documented By: BEENA Nitroglycerin (Nitroglycerin 0.4 Mg Sl Tab) 0.4 mg SL NOW ONE Stop: 03/09/25 04:42 Last Admin: 03/09/25 04:42 Dose: 0.4 mg Documented By: BEENA Nitroglycerin (Nitroglycerin 0.4 Mg Sl Tab) 0.4 mg SL NOW ONE Stop: 03/09/25 05:15 Last Admin: 03/09/25 05:18 Dose: 0.4 mg Documented By: BEENA Vital Signs Vital signs: Vital Signs - 8 hr 03/09/25 03:31 03/09/25 04:25 03/09/25 04:30 Temperature 97.4 F L Pulse Rate 88 83 Respiratory Rate 18 16 Blood Pressure 150/80 H 140/69 Pulse Oximetry 96 97 Oxygen Delivery Method Room Air 03/09/25 04:30 03/09/25 04:35 03/09/25 04:40 Temperature Pulse Rate 83 80 79 Respiratory Rate 17 15 20 Blood Pressure Pulse Oximetry 96 95 98 Oxygen Delivery Method Room Air 03/09/25 04:42 03/09/25 04:45 03/09/25 04:50 Temperature Pulse Rate 69 92 H 86 Respiratory Rate 13 14 Blood Pressure 140/69 Pulse Oximetry 96 94 Oxygen Delivery Method Room Air 03/09/25 04:53 03/09/25 04:53 03/09/25 05:00 Temperature Pulse Rate 83 80 Respiratory Rate 13 13 Blood Pressure 122/60 Pulse Oximetry 94 95 Oxygen Delivery Method Room Air 03/09/25 05:00 03/09/25 05:18 03/09/25 05:30 Temperature Pulse Rate 77 83 Respiratory Rate 17 Blood Pressure 120/57 L 120/57 L Pulse Oximetry 93 Oxygen Delivery Method Room Air 03/09/25 05:30 Temperature Pulse Rate Respiratory Rate Blood Pressure 114/59 L Pulse Oximetry Oxygen Delivery Method MDM - Chest Pain Lab Data 03/09/25 04:20 04/25/25 04:20 Labs: Lab Results 03/09/25 Range/Units 04:20 WBC 6.1 (4.5-11.0) X10^3/uL RBC 4.23 (4.0-5.2) X10^6/uL Hgb 12.2 (12.0-16.0) g/dL Hct 36.7 (36-46) % MCV 86.8 (80-100) fL MCH 28.8 (26-34) PG MCHC 33.2 (30-36) % RDW 14.4 (11.6-14.8) % Plt Count 208 (150-400) X10^3/uL Neut % (Auto) 74.1 (50-75) % Lymph % (Auto) 15.3 L (25-40) % [place] % (Auto) 7.7 (3-14) % Eos % (Auto) 2.3 (2-4) % Baso % (Auto) 0.6 (0-2) % Neut # (Auto) 4500 (5534-7283) /uL Lymph # (Auto) 900 L (9650-3073) /uL [place] # (Auto) 500 (0-900) /uL Eos # (Auto) 100 (0-450) /uL Baso # (Auto) 0 (0-100) /uL PT 11.5 (9.4-12.5) SECONDS INR 1.0 (0.9-1.3) APTT 30 (25.1-36.5) SECONDS Sodium 137 (137-145) mmol/L Potassium 4.1 (3.4-5.1) mmol/L Chloride 102 (98-107) mmol/L Carbon Dioxide 26 (22-32) mmol/L BUN 12 (7-17) mg/dL Creatinine 0.56 (0.52-1.04) mg/dL Estimated GFR > 60 (>60) mL/min BUN/Creatinine Ratio 21.4 (6-22) Glucose 148 H (70-99) mg/dL Calcium 9.0 (8.4-10.2) mg/dL Magnesium 1.7 (1.6-2.3) mg/dL Total Bilirubin 0.5 (0.2-1.3) mg/dL AST 64 H (14-36) IU/L ALT 70 H (<35) IU/L Alkaline Phosphatase 53 (38-126) U/L Total Creatine Kinase 97 (30-135) U/L Troponin I < 0.012 (0.01-0.034) ng/mL NT-Pro-B Natriuret Pep < 20 (<125) pg/mL Total Protein 6.8 (6.3-8.2) g/dL Albumin 4.2 (3.5-5.0) g/dL Globulin 2.6 (1.7-4.1) g/dL Albumin/Globulin Ratio 1.6 (1.0-2.8) Lipase 356 H (23-300) U/L ECG Data Interpretation: NSR HR 83 ME 152 QRS [address]-t wave change Unchanged from 03/02/22 MDM Narrative Medical decision making narrative: All lab work EKG chest x-ray vital signs nurse triage note medication list and all previous ER visits all reviewed. Patient given aspirin and 2 nitros here patient is completely pain-free at this time. Heart score of 3. Patient will follow up with electric dolly operator in [place] next week for appointment. Differential diagnosis STEMI NSTEMI GERD anxiety unstable angina. Discharge Plan Departure Patient Disposition: Home Clinical Impression: Chest pain Instructions: DI for Chest Pain Activity Restrictions/Additional Instructions: Return with new or worsening symptoms. Follow up with the electric dolly operator in [place] next week and or call PCP for appointment next week if unable to reach Cardiology. Prescriptions: No Action epinephrine [EpiPen 2-Kyle] 0.3 MG/0.3 ML auto-injector 0.3 mg INJ X1 PRN (Reason: Allergic Reaction) losartan 50 mg tablet 50 mg PO DAILY metformin 500 mg tablet 1,000 mg PO BID metoprolol succinate 50 mg tablet extended release 24 hr 50 mg PO BID glimepiride 2 mg tablet 2 mg PO BID trazodone 100 mg tablet 100 mg PO ONCE PM amlodipine 10 mg tablet 10 mg PO DAILY omeprazole 20 mg capsule,delayed release(DR/EC) 20 mg PO DAILY hydrochlorothiazide 25 mg tablet 25 mg PO DAILY liraglutide 0.6 mg/0.1 mL (18 mg/3 mL) pen injector SUBCUT Patient Comments: [NO ORIGINAL SIG] Referrals: Genna Guzman ARNP [Primary Care Provider] - Stand Alone Forms: Patient Portal/API/Survey
--- NOTE | 2025-03-09 03:44 | EKG_ITS ---
[address] [address] Test Date: 2025-03-09 Pat Name: Seven Brown Department: [facility] Room: Gender: Female [employer]: : 1970 Requested By: Order Number: [id number] Reading MD: Lee Rayo MD Measurements Intervals [place] Rate: 83 P: 31 MS: 152 QRS: -16 QRSD: 76 T: 15 QT: 390 QTc: 458 Interpretive Statements Normal sinus rhythm Cannot rule out Anterior infarct , age undetermined Electronically Signed On 03-09-2025 6:40:52 PDT by Lee Rayo MD
[2025-03-09] MEDS: ASPIRIN 81 MG CHEW TAB 324 MG PO (04:10)
[2025-03-09 04:32] LABS: Add Manual Diff / Slide Review NO; Basophils Absolute Auto 0 /uL (0-100); Basophils Percent Auto 0.6 % (0-2); Eosinophils Absolute Auto 100 /uL (0-450); Eosinophils Percent Auto 2.3 % (2-4); Hematocrit 36.7 % (36-46); Hemoglobin 12.2 g/dL (12.0-16.0); Lymphocytes Absolute Auto 900 /uL (1100-4500); Lymphocytes Percent Auto 15.3 % (25-40); Mean Corpuscular HGB Conc 33.2 % (30-36); Mean Corpuscular Hemoglobin 28.8 PG (26-34); Mean Corpuscular Volume 86.8 fL (80-100); Monocytes Absolute Auto 500 /uL (0-900); Monocytes Percent Auto 7.7 % (3-14); Neutrophils Absolute Auto 4500 /uL (1500-7000); Neutrophils Percent Auto 74.1 % (50-75); Platelet Count 208 X10^3/uL (150-400); Red Blood Cell Count 4.23 X10^6/uL (4.0-5.2); Red Cell Distribution Width 14.4 % (11.6-14.8); White Blood Cell Count 6.1 X10^3/uL (4.5-11.0)
[2025-03-09 04:38] LABS: Prothrombin Time 11.5 SECONDS (9.4-12.5)
[2025-03-09 04:41] LABS: PTT Partial Thromboplastin Tim 30 SECONDS (25.1-36.5)
[2025-03-09 04:42] LABS: Alanine Aminotransferase 70 IU/L (<35); Albumin 4.2 g/dL (3.5-5.0); Albumin Globulin Ratio 1.6 (1.0-2.8); Alkaline Phosphatase 53 U/L (38-126); Aspartate Aminotransferase 64 IU/L (14-36); BUN Creatinine Ratio 21.4 (6-22); Bilirubin Total 0.5 mg/dL (0.2-1.3); Blood Urea Nitrogen 12 mg/dL (7-17); Carbon Dioxide 26 mmol/L (22-32); Chloride 102 mmol/L (98-107); Creatine Kinase 97 U/L (30-135); Estimated Glomerular Filt Rate > 60 mL/min (>60); Globulin 2.6 g/dL (1.7-4.1); Glucose 148 mg/dL (70-99); HEMOLYSIS 22 (0-50); Lipase 356 U/L (23-300); Magnesium 1.7 mg/dL (1.6-2.3); Potassium 4.1 mmol/L (3.4-5.1); Sodium 137 mmol/L (137-145); Total Protein 6.8 g/dL (6.3-8.2)
[2025-03-09] MEDS: NITROGLYCERIN 0.4 MG SL TAB SL ×2 (04:42→05:18)
[2025-03-09 04:54] LABS: NT-proBNP (BNP-Adult 18+) < 20 pg/mL (<125); Troponin I < 0.012 ng/mL (0.01-0.034)
[2025-03-09] MEDS: ACETAMINOPHEN 325 MG TABLET 975 MG PO (05:24)
--- NOTE | 2025-03-09 06:01 | PC.NURSE ---
pt states her h/a is better and the chest pain is almost completely resolved
[2025-03-09 06:22] LABS: Troponin I < 0.012 ng/mL (0.01-0.034)
== END 2025-03-09 06:45 | disposition home or self-care (01) ==
PROVIDERS: Emergency Provider Family Medicine; PCP Nurse Practitioner Family
DX: R07.9 Chest pain, unspecified (principal); R11.0 Nausea
CPT/HCPCS: 36415; 71045; 80053; 82550; 83690; 83735; 83880; 84484; 85025; 85610; 85730; 93005; 93010; 99284